=== PATIENT | female | born 1960 | race Caucasian/White ===

== ENCOUNTER → 2017-11-09 08:25 | Outpatient (CLI) | payer BC, SELFPAY ==
--- NOTE | 2017-11-09 08:28 | MM_ITS ---
MM Dig screening mamm BI w/CAD CAD Screening ORDERING PHYSICIAN : Dannie Hernandez MD PATIENT AGE: 57 years GENDER: Female COMPARISON: Previous mammograms: April INDICATION: Routine screening. 57-year-old taking estrogen no new complaints. Noncontributory family history TECHNIQUE: Standard CC and MLO images were obtained. R2 CAD reviewed. FINDINGS: Low-density breast bilaterally with generalized fatty replacement throughout. . CAD computer review highlights no new areas of significant concern. RIGHT BREAST:Minor density laterally on cc view only seems to dissipate dissipates on the MLO view... I favor likely reflects summation shadow with accentuated glandular tissue laterally on cc view. Similar Appearance seen back on 2011 right cc view. Fairly Similar feature on 2013 cc view is well well. . Suggest follow-up right mammogram in 6 months to confirm stability LEFT BREAST:Stable no areas of concern. Follow-up in left mammogram one year recommended. IMPRESSION: ]. 1. RIGHT BREAST: Minimal focal density lateral right breast most likely summation shadow. Similar to the 2011 exam. However since it is slightly more versus the recent 2 years studies I would suggest a 6-8 month follow-up right mammogram confirm stable of this and other area . 2. Left breast unremarkable with follow-up in one year BI-RADS Category: 3 Benign Finding Short Term Follow-up RECOMMENDED FOLLOW-UP: 6M -8 MONTH FOLLOW-UP (A letter has been sent to the patient regarding results of the study.)
== END ==
PROVIDERS: PCP Family Medicine; Visit Provider Nurse Practitioner Obstetrics & Gynecology
DX: Z12.31 Encounter for screening mammogram for malignant neoplasm of breast (principal)
CPT/HCPCS: 77067

== ENCOUNTER → 2017-11-09 10:12 | Outpatient (CLI) | payer BC, SELFPAY ==
[2017-11-09 10:26] LABS: Basophils % 0.4 % (0.1-2.0); Eosinophils # 0.3 K/mm3 (0.0-0.4); Eosinophils % 4.4 % (0.1-12.0); Hematocrit 42.2 % (37.0-47.0); Hemoglobin 13.7 g/dL (12.2-16.2); Lymphocytes # 1.7 K/mm3 (0.7-4.5); Lymphocytes % 22.8 K/mm3 (10-50); Mean Corpuscular HGB Conc 32.5 g/dL (31.8-35.4); Mean Corpuscular Volume 86.1 fl (81-99); Mean Platelet Volume 8.1 fl (7.4-10.4); Monocytes # 0.4 K/mm3 (0.1-1.0); Monocytes % 4.8 % (1.7-9.3); Neutrophils # 5.1 K/mm3 (1.8-7.8); Neutrophils % 67.7 % (37.0-80.0); Platelet Count 304 K/mm3 (142-424); Red Cell Distribution Width 13.5 % (11.5-17.5); White Blood Count 7.6 K/mm3 (4.8-10.8)
[2017-11-09 10:48] LABS: Alanine Aminotransferase 41 U/L (12-78); Albumin Level 3.7 gm/dL (3.4-5.0); Albumin/Globulin Ratio 0.9 (1.1-1.8); Alkaline Phosphatase 89 U/L (46-116); Anion Gap 11.1 mEq/L (5-15); Aspartate Amino Transferase 19 U/L (15-37); Bilirubin,Total 0.5 mg/dL (0.2-1.0); Blood Urea Nitrogen 21 mg/dL (7-18); Calcium 8.9 mg/dL (8.5-10.1); Carbon Dioxide 32 mmol/L (21.0-32.0); Chloride 103 mmol/L (98-107); Chol/HDL Ratio 3.1 (1-3.5); Cholesterol 121 mg/dL (140-200); Creatinine,Serum 0.91 mg/dL (0.55-1.02); Estimated Glomerular Filt Rate 64 ml/min (>60); GFR (African American) 77 ML/MIN (>60); Globulin 4.2 gm/dl (1.3-3.2); Glucose 118 mg/dL (74-106); HDL Cholesterol 39 mg/dL (29-89); LDL Cholesterol 74 mg/dL (0-130); Potassium 4.1 mmoL/L (3.5-5.1); Sodium 142 mmol/L (136-145); T4 (Thyroxine) 8.2 ug/dl (4.7-13.3); Thyroid Stimulating Hormone 1.53 uIU/ml (0.358-3.740); Total Protein,Serum 7.9 gm/dL (6.4-8.2); Triglycerides 39 mg/dL (30-200); Triiodothryronine (T3) Uptake 36 % (31-39); VLDL Cholesterol 8 mg/dL (0-40)
== END ==
PROVIDERS: Visit Provider Nurse Practitioner Obstetrics & Gynecology
DX: Z01.419 Encounter for gynecological examination (general) (routine) without abnormal findings (principal); E03.9 Hypothyroidism, unspecified
CPT/HCPCS: 36415; 80053; 80061; 84436; 84443; 84479; 85025

== ENCOUNTER → 2019-01-08 15:30 | Outpatient (CLI) | payer BC, SELFPAY ==
[2019-01-08 16:09] LABS: Hematocrit 37.9 % (37.0-47.0); Hemoglobin 12.8 g/dL (12.2-16.2)
[2019-01-08 16:53] LABS: Anion Gap 11.9 mEq/L (5-15); Blood Urea Nitrogen 18 mg/dL (7-18); Calcium 9.1 mg/dL (8.5-10.1); Carbon Dioxide 31 mmol/L (21.0-32.0); Chloride 101 mmol/L (98-107); Estimated Glomerular Filt Rate 65 ml/min (>60); GFR (African American) 78 ML/MIN (>60); Glucose 107 mg/dL (74-106); Potassium 3.9 mmoL/L (3.5-5.1); Sodium 140 mmol/L (136-145)
== END ==
PROVIDERS: Visit Provider Otolaryngology
DX: Z01.818 Encounter for other preprocedural examination (principal)
CPT/HCPCS: 36415; 80048; 85014; 85018; 93005

== ENCOUNTER → 2019-03-14 10:53 | Outpatient (CLI) | payer BC, SELFPAY ==
--- NOTE | 2019-03-14 10:55 | MM_ITS ---
MM Dig screening mamm BI w/CAD CAD Screening COMPARISON: Digital mammograms with CAD 11/09/2017 and 01/08/2016 INDICATION: There is no personal or family history of breast cancer. TECHNIQUE: Standard CC and MLO images were obtained. R2 CAD reviewed. FINDINGS: The breasts are composed primarily of fat with very minimal scattered fibroglandular densities in each breast. Again is a small asymmetric glandular density upper outer quadrant right breast which is stable. There is no suspicious lesion and there are no suspicious microcalcifications. IMPRESSION: Fatty type breast parenchyma with no suspicious lesion seen BI-RADS Category: 1 Negative RECOMMENDED FOLLOW-UP: 1YR - 1 YEAR FOLLOW-UP (A letter has been sent to the patient regarding results of the study.)
[2019-03-14 12:14] LABS: Basophils # 0.1 K/mm3 (0-0.2); Basophils % 0.6 % (0.1-2.0); Eosinophils # 0.2 K/mm3 (0.0-0.4); Eosinophils % 2.5 % (0.1-12.0); Hematocrit 41.2 % (37.0-47.0); Lymphocytes # 2.8 K/mm3 (0.7-4.5); Lymphocytes % 31.6 % (10-50); Mean Corpuscular HGB Conc 31.7 g/dL (31.8-35.4); Mean Corpuscular Hemoglobin 26.7 pg (27.0-31.2); Mean Corpuscular Volume 84.4 fl (81-99); Mean Platelet Volume 7.5 fl (7.4-10.4); Monocytes # 0.6 K/mm3 (0.1-1.0); Monocytes % 6.6 % (1.7-9.3); Neutrophils # 5.1 K/mm3 (1.8-7.8); Neutrophils % 58.7 % (37.0-80.0); Platelet Count 404 K/mm3 (142-424); Red Blood Count 4.88 M/mm3 (4.20-5.40); Red Cell Distribution Width 13.9 % (11.5-17.5); White Blood Count 8.7 K/mm3 (4.8-10.8)
[2019-03-14 13:34] LABS: Alanine Aminotransferase 49 U/L (12-78); Albumin Level 3.6 gm/dL (3.4-5.0); Alkaline Phosphatase 89 U/L (46-116); Anion Gap 11.8 mEq/L (5-15); Aspartate Amino Transferase 19 U/L (15-37); Bilirubin,Total 0.9 mg/dL (0.2-1.0); Blood Urea Nitrogen 17 mg/dL (7-18); Calcium 9.2 mg/dL (8.5-10.1); Carbon Dioxide 32 mmol/L (21.0-32.0); Chloride 100 mmol/L (98-107); Cholesterol 177 mg/dL (140-200); Creatinine,Serum 0.95 mg/dL (0.55-1.02); Estimated Glomerular Filt Rate 61 ml/min (>60); GFR (African American) 73 ML/MIN (>60); Globulin 3.7 gm/dl (1.3-3.2); Glucose 103 mg/dL (74-106); HDL Cholesterol 44 mg/dL (29-89); LDL Cholesterol 114 mg/dL (0-130); Potassium 4.8 mmoL/L (3.5-5.1); Sodium 139 mmol/L (136-145); T4 (Thyroxine) 8.3 ug/dl (4.7-13.3); Thyroid Stimulating Hormone 2.08 uIU/ml (0.358-3.740); Total Protein,Serum 7.3 gm/dL (6.4-8.2); Triglycerides 93 mg/dL (30-200); Triiodothryronine (T3) Uptake 36 % (31-39); VLDL Cholesterol 19 mg/dL (0-40)
== END ==
PROVIDERS: PCP Family Medicine; Visit Provider Nurse Practitioner Obstetrics & Gynecology
DX: Z12.31 Encounter for screening mammogram for malignant neoplasm of breast (principal); Z01.419 Encounter for gynecological examination (general) (routine) without abnormal findings; R53.83 Other fatigue
CPT/HCPCS: 36415; 77067; 80053; 80061; 84436; 84443; 84479; 85025

== ENCOUNTER → 2019-03-14 11:31 | Outpatient (CLI) | payer BC, SELFPAY | PROVIDERS: Visit Provider Nurse Practitioner Obstetrics & Gynecology | DX: Z01.419 Encounter for gynecological examination (general) (routine) without abnormal findings (principal) | CPT/HCPCS: 36415; 80053; 80061; 84436; 84443; 84479; 85025 ==

== ENCOUNTER → 2019-09-10 14:23 | Outpatient (CLI) | payer BC, SELFPAY | PROVIDERS: PCP Family Medicine; Visit Provider Urology | DX: R00.2 Palpitations (principal); I34.0 Nonrheumatic mitral (valve) insufficiency; I11.9 Hypertensive heart disease without heart failure; E78.5 Hyperlipidemia, unspecified; R06.83 Snoring; R40.0 Somnolence | CPT/HCPCS: 93270 ==

== ENCOUNTER → 2019-09-13 14:56 | Outpatient (CLI) | payer BC, SELFPAY ==
--- NOTE | 2019-09-13 14:57 | CA_ITS ---
APPROVED REPORT EXAM: Comprehensive 2D, Doppler, and color-flow Echocardiogram Liner Helper: Willow Hidalgo CRT Ht: 5 ft 9 in Wt: 234lbs BSA: 2.21 BP: 156/63 mmHg Indications: Shortness of Breath, Obesity 2D Dimensions LVOT 1.87 cm (M/F) 1.5-2.5 M-Mode Dimensions RVDd 2.72 cm (0.9-2.6) LVDd 5.29 cm (3.5-5.7) LVDs 3.22 cm (3.5-5.7) IVSd 0.72 cm (0.6-1.1) PWd 0.69 cm (0.6-1.1) EF (Teich) 69.10% FS 39.10% EDV (Teich) 134.80 mL ESV (Teich) 41.60 mL LV Diastology E/A Ratio 0.98 Mitral Valve MV A Velocity 96.00 (40-130 cm/s) Left Ventricle Left atrium is normal size, left ventricle is normal size, there is no concentric left ventricular hypertrophy, visually estimated ejection fraction 55% with no regional wall motion abnormality, diastolic parameters are within normal range. Right Ventricle Right atrium and right ventricular normal size and contractility. Aortic Valve Aortic valve is grossly normal, there is no aortic stenosis aortic insufficiency. Mitral Valve Mitral valve is grossly normal, there is mild mitral regurgitation. Tricuspid Valve Tricuspid valve is grossly normal, there is mild tricuspid regurgitation. Tricuspid regurgitation jet velocity is inadequate for calculation of the right ventricular systolic pressure. Pulmonic Valve Pulmonic valve is poorly visualized. Great Vessels Aortic root is normal size. Pericardium No significant pericardial effusion noted. Conclusion 1. Normal left ventricular size, preserved left ventricular systolic function, visually estimated ejection fraction 55% with no regional wall motion abnormality, diastolic parameters are within normal range. 2. Mild mitral and tricuspid regurgitation. 3. No significant pericardial effusion noted. Electronically signed by : Eddie Kovacs, 09/13/2019 19:59:09
== END ==
PROVIDERS: PCP Family Medicine; Visit Provider Urology
DX: R00.2 Palpitations (principal); I11.9 Hypertensive heart disease without heart failure; I34.0 Nonrheumatic mitral (valve) insufficiency; E78.5 Hyperlipidemia, unspecified; R06.83 Snoring; R40.0 Somnolence
CPT/HCPCS: 93306; G0399

== ENCOUNTER → 2020-09-18 10:36 | Outpatient (CLI) | payer BC, SELFPAY ==
--- NOTE | 2020-09-18 10:44 | XR_ITS ---
PROCEDURE: XR HAND LT MIN 3V CLINICAL INDICATION: LT HAND PAIN COMPARISON: No exams were available for comparison FINDINGS: No fracture or dislocation. No lytic or blastic change. There is normal mineralization. There are mild osteoarthritic changes at the 1st metacarpal-carpal junction Other findings:None. IMPRESSION: Mild osteoarthritis 1st metacarpal-carpal junction otherwise negative Dictated by: Braulio Chandler MD 09/18/2020 15:38 Braulio Chandler MD in [place] 09/18/2020 15:38
== END ==
PROVIDERS: PCP Family Medicine; Visit Provider Physician Assistant
DX: M79.642 Pain in left hand (principal)
CPT/HCPCS: 73130

== ENCOUNTER → 2021-02-03 15:46 | Outpatient (CLI) | payer BC, SELFPAY ==
--- NOTE | 2021-02-03 15:51 | XR_ITS ---
PROCEDURE: XR ANKLE WT BEARING LT MIN 3V CLINICAL INDICATION: pain COMPARISON: CR ANKR3 ANKLE-RT-3 VIEWS from 09/01/2016 FINDINGS: Bones: No fracture or dislocation. No lytic or blastic change. There is normal mineralization. Joints: The joint spaces are well-preserved. No significant degenerative/arthritic changes. No erosive changes evident. Other findings:None. IMPRESSION: Negative left ankle Dictated by: Braulio Chandler MD 02/03/2021 17:27 Braulio Chandler MD in [place] 02/03/2021 17:27
--- NOTE | 2021-02-03 15:51 | XR_ITS ---
PROCEDURE: XR FOOT WT BEARING LT 3V CLINICAL INDICATION: pain COMPARISON: No exams were available for comparison FINDINGS: No fracture or dislocation. No lytic or blastic change. There is normal mineralization. The joint spaces are well-preserved. No significant degenerative/arthritic changes. No erosive changes evident. Other findings:Small ununited ossicle is present along the anterior and proximal aspect of the navicular. There is a small calcaneal spur. IMPRESSION: No acute findings. Dictated by: Braulio Chandler MD 02/03/2021 17:26 Braulio Chandler MD in [place] 02/03/2021 17:26
== END ==
PROVIDERS: PCP Family Medicine; Visit Provider Podiatrist
DX: M79.672 Pain in left foot (principal)
CPT/HCPCS: 73610; 73630

== ENCOUNTER → 2021-02-08 09:41 | Outpatient (CLI) | payer BC, SELFPAY ==
--- NOTE | 2021-02-08 09:41 | MM_ITS ---
PROCEDURE: MM DIG SCREENING MAMM BI W/CAD Digital Breast Tomosynthesis Included CLINICAL INDICATION: Routine Screening Mammogram COMPARISON: MG DMSB DIGITAL MAMM-SCREEN BILATERAL from 05/04/2012 MG DMSB DIG MAMM-SCREEN SOB[place] from 05/23/2013 MG DMSB DIG MAMM-SCREEN [place] from 07/29/2014 MG DMSB DIG MAMM-SCREEN [place] from 01/08/2016 MG SCBI MM Dig screening mamm BI w/CAD from 11/09/2017 MG DIG MAMM-SCREEN [place] from 03/14/2019 TECHNIQUE: Standard CC and MLO images and 3D Tomosynthesis was obtained. R2 CAD reviewed. FINDINGS: There are scattered fibroglandular elements which may obscure a lesion on mammography. No new dominant mass or indirect evidence of malignancy. No suspicious type microcalcifications. IMPRESSION: Normal bilateral digital screening mammograms. BI-RAD Category: 1 Negative FOLLOW-UP: 1 YR 1 Year Follow-up (A letter has been sent to the patient regarding results of the study.) Dictated by: Low Torres MD 02/10/2021 07:45 Low Torres MD in [place] 02/10/2021 07:45
[2021-02-08 11:51] LABS: Basophils # 0.1 K/mm3 (0-0.2); Basophils % 0.8 % (0.1-2.0); Eosinophils # 0.3 K/mm3 (0.0-0.4); Eosinophils % 3.2 % (0.1-12.0); Hematocrit 40.3 % (37.0-47.0); Hemoglobin 13.6 g/dL (12.2-16.2); Lymphocytes # 2.2 K/mm3 (0.7-4.5); Lymphocytes % 26.4 % (10-50); Mean Corpuscular HGB Conc 33.6 g/dL (31.8-35.4); Mean Corpuscular Hemoglobin 28.9 pg (27.0-31.2); Mean Corpuscular Volume 85.9 fl (81-99); Mean Platelet Volume 7.8 fl (7.4-10.4); Monocytes # 0.5 K/mm3 (0.1-1.0); Neutrophils # 5.3 K/mm3 (1.8-7.8); Neutrophils % 63.7 % (37.0-80.0); Platelet Count 293 K/mm3 (142-424); Red Cell Distribution Width 13.7 % (11.5-17.5); White Blood Count 8.4 K/mm3 (4.8-10.8)
[2021-02-08 13:10] LABS: Alanine Aminotransferase 28 U/L (12-78); Albumin Level 4.3 g/dl (3.5-5.0); Albumin/Globulin Ratio 1.4 (1.1-1.8); Alkaline Phosphatase 83 U/L (38-126); Anion Gap 9.4 mEq/L (5-15); Aspartate Amino Transferase 32 U/L (14-36); Bilirubin,Total 1.1 mg/dl (0.2-1.3); Blood Urea Nitrogen 18 mg/dl (7-17); Calcium 8.7 mg/dl (8.4-10.2); Carbon Dioxide 31 mmol/L (22.0-30.0); Chloride 103 mmol/L (98-107); Chol/HDL Ratio 3.5 (1-3.5); Cholesterol 156 mg/dl (140-200); Estimated Glomerular Filt Rate 64 ml/min (>60); GFR (African American) 78 ML/MIN (>60); Globulin 3.1 g/dL (1.3-3.2); Glucose 107 mg/dl (74-100); HDL Cholesterol 45 mg/dl (40-60); Potassium 4.4 mmoL/L (3.5-5.1); Sodium 139 mmol/L (136-145); Total Protein,Serum 7.4 g/dl (6.3-8.2); Triglycerides 76 mg/dl (30-150); VLDL Cholesterol 15 mg/dL (0-40)
[2021-02-08 13:22] LABS: Direct LDL Cholesterol 93.11 mg/dL (100-129)
[2021-02-08 13:28] LABS: 25-OH Vitamin D, Total 27.2 ng/mL (30-100); Free Thyroxine Index 2.4 ug/dL (5.93-13.13); Triiodothryronine (T3) Uptake 30 % (23.5-40.5)
[2021-02-08 13:42] LABS: Thyroid Stimulating Hormone 1.46 uIU/mL (0.465-4.68)
== END ==
PROVIDERS: PCP Family Medicine; Visit Provider Nurse Practitioner Obstetrics & Gynecology
DX: Z12.31 Encounter for screening mammogram for malignant neoplasm of breast (principal); Z01.419 Encounter for gynecological examination (general) (routine) without abnormal findings; R53.82 Chronic fatigue, unspecified; R53.83 Other fatigue
CPT/HCPCS: 36415; 77063; 77067; 80053; 80061; 82306; 84436; 84443; 84479; 85025

== ENCOUNTER → 2021-02-08 11:13 | Outpatient (CLI) | payer BC, SELFPAY | PROVIDERS: Visit Provider Nurse Practitioner Obstetrics & Gynecology | DX: Z01.419 Encounter for gynecological examination (general) (routine) without abnormal findings (principal) | CPT/HCPCS: 36415; 80053; 80061; 82306; 84436; 84443; 84479; 85025 ==

== ENCOUNTER → 2021-07-21 16:20 | Outpatient (CLI) | payer BC, SELFPAY ==
[2021-07-21 17:03] LABS: Basophils # 0.1 K/mm3 (0-0.2); Basophils % 0.8 % (0.1-2.0); Eosinophils # 0.3 K/mm3 (0.0-0.4); Eosinophils % 4.7 % (0.1-12.0); Hematocrit 40.8 % (37.0-47.0); Hemoglobin 13.8 g/dL (12.2-16.2); Lymphocytes # 1.5 K/mm3 (0.7-4.5); Lymphocytes % 25.8 % (10-50); Mean Corpuscular HGB Conc 33.7 g/dL (31.8-35.4); Mean Corpuscular Hemoglobin 29.5 pg (27.0-31.2); Mean Corpuscular Volume 87.5 fl (81-99); Mean Platelet Volume 8.6 fl (7.4-10.4); Monocytes # 0.5 K/mm3 (0.1-1.0); Monocytes % 7.8 % (1.7-9.3); Neutrophils # 3.5 K/mm3 (1.8-7.8); Neutrophils % 60.8 % (37.0-80.0); Platelet Count 260 K/mm3 (142-424); Red Blood Count 4.66 M/mm3 (4.20-5.40); Red Cell Distribution Width 14.1 % (11.5-17.5); White Blood Count 5.8 K/mm3 (4.8-10.8)
== END ==
PROVIDERS: PCP Physician Assistant; Visit Provider Physician Assistant
DX: Z20.822 Contact with and (suspected) exposure to COVID-19 (principal)
CPT/HCPCS: 36415; 85025; C9803; U0003; U0005

== ENCOUNTER → 2021-11-16 09:24 | Outpatient (CLI) | payer BC, SELFPAY ==
--- NOTE | 2021-11-16 09:28 | XR_ITS ---
FINAL REPORT TECHNIQUE: Bone densitometry calculations of the lumbar spine and left hip were obtained. CLINICAL HISTORY: . post menopausal FINDINGS: Using L1-4, the bone mineral density of the spine is 1.276 g/cm2, corresponding to T-score of 2.1. Using the left hip, the bone mineral density of the femoral neck is 1.064 g/cm2, corresponding to a T-score of 1.0. Using the right hip, the bone mineral density of the femoral neck is 0.901 g/cm2, corresponding to a T-score of 0.5. NOTE: T-score: Standard deviation compared with peak bone mass of young adult mean. *Following the recommendations of the International Society of Bone densitometry, classification of hip BMD is based on the lower of two T-scores; total hip or femoral neck. IMPRESSION: Normal bone mineral density of the lumbar spine and hips. Reviewed, Interpreted and Dictated by Ace Velásquez MD Transcribed by Belen Dominguez Authenticated by Ace Velásquez MD on 11/16/2021 11:26:37 AM [facility]
== END ==
PROVIDERS: PCP Physician Assistant; Visit Provider Physician Assistant
DX: Z78.0 Asymptomatic menopausal state (principal)
CPT/HCPCS: 77080

== ENCOUNTER → 2022-07-29 15:49 | Outpatient (CLI) | payer BC, SELFPAY ==
--- NOTE | 2022-07-29 15:49 | MM_ITS ---
PROCEDURE INFORMATION: Exam: MG Bilateral Screening 3D Mammography Exam date and time: 07/29/2022 3:57 PM Age: 62 years old Clinical indication: Screening. No family history of breast cancer. TECHNIQUE: Imaging protocol: Bilateral Screening tomosynthesis and 2D mammography including computer-aided detection (CAD) when performed. COMPARISON: 1. MG MM DIG SCREENING MAMM BI W/CAD 02/08/2021 9:57 AM 2. MG DIG MAMM-SCREEN SOBIA 03/14/2019 11:19 AM 3. MG SCBI MM Dig screening mamm BI w/CAD 11/09/2017 8:41 AM 4. MG DMSB DIG MAMM-SCREEN [place] 01/08/2016 4:53 PM FINDINGS: MAMMOGRAPHY: Breast composition: There are scattered areas of fibroglandular density. Mass: None. Architectural distortion: None. Calcifications: No suspicious calcifications. Asymmetric density: None. Skin thickening: None. Axillary adenopathy: None. IMPRESSION: No mammographic evidence of malignancy. Annual screening is recommended unless otherwise clinically indicated. ASSESSMENT: BI-RADS Category 1: Negative
== END ==
PROVIDERS: PCP Physician Assistant; Visit Provider Nurse Practitioner Obstetrics & Gynecology
DX: Z12.31 Encounter for screening mammogram for malignant neoplasm of breast (principal)
CPT/HCPCS: 77063; 77067

== ENCOUNTER → 2022-09-10 10:02 | Outpatient (CLI) | payer BC, SELFPAY ==
[2022-09-10 10:08] LABS: MANUAL DIFFERENTIAL MANUAL DIFFERENTIAL (MANUAL DIFF)
[2022-09-10 10:43] LABS: Basophils # 0.1 K/mm3 (0-0.2); Basophils % 0.9 % (0.1-2.0); Eosinophils # 0.3 K/mm3 (0.0-0.4); Eosinophils % 3.2 % (0.1-12.0); Hematocrit 42.6 % (37.0-47.0); Hemoglobin 13.8 g/dL (12.2-16.2); Lymphocytes # 2.3 K/mm3 (0.7-4.5); Lymphocytes % 27.5 % (10-50); Mean Corpuscular HGB Conc 32.4 g/dL (31.8-35.4); Mean Corpuscular Hemoglobin 28.9 pg (27.0-31.2); Mean Corpuscular Volume 89.2 fl (81-99); Mean Platelet Volume 8.2 fl (7.4-10.4); Monocytes # 0.4 K/mm3 (0.1-1.0); Monocytes % 5.3 % (1.7-9.3); Neutrophils # 5.3 K/mm3 (1.8-7.8); Neutrophils % 63.2 % (37.0-80.0); Platelet Count 382 K/mm3 (142-424); Red Blood Count 4.77 M/mm3 (4.20-5.40); Red Cell Distribution Width 14.1 % (11.5-17.5); White Blood Count 8.4 K/mm3 (4.8-10.8)
[2022-09-10 11:04] LABS: Chloride 103 mmol/L (98-107)
[2022-09-10 11:05] LABS: Potassium 4.3 mmoL/L (3.5-5.1); Sodium 141 mmol/L (136-145)
[2022-09-10 11:07] LABS: Alanine Aminotransferase 26 U/L (12-78); Alkaline Phosphatase 92 U/L (38-126); Anion Gap 11.3 mEq/L (5-15); Aspartate Amino Transferase 29 U/L (14-36); Blood Urea Nitrogen 12 mg/dl (7-17); Carbon Dioxide 31 mmol/L (22.0-30.0); Estimated Glomerular Filt Rate 56 ml/min (>60); GFR (African American) 68 ML/MIN (>60)
[2022-09-10 11:08] LABS: Albumin Level 4.2 g/dl (3.5-5.0); Albumin/Globulin Ratio 1.3 (1.1-1.8); Calcium 8.8 mg/dl (8.4-10.2); Globulin 3.2 g/dL (1.3-3.2); Glucose 112 mg/dl (74-100); Total Protein,Serum 7.4 g/dl (6.3-8.2)
[2022-09-10 11:39] LABS: Thyroid Stimulating Hormone 1.55 uIU/mL (0.465-4.68)
[2022-09-10 12:03] LABS: Eosinophils % 1 % (0-3); Lymphocytes % 29 % (10-50); Monocytes % 2 % (2-9); Neutrophils % 68 % (42-76); Platelet Estimate Normal; RBC Morphology Normal; Total Cells Counted 100
[2022-09-13 14:21] LABS: Chol/HDL Ratio 4.1 (1-3.5); Cholesterol 145 mg/dl (140-200); HDL Cholesterol 35 mg/dl (40-60); Triglycerides 67 mg/dl (30-150); VLDL Cholesterol 13 mg/dL (0-40)
[2022-09-13 14:32] LABS: Direct LDL Cholesterol 81.96 mg/dL (100-129)
== END ==
PROVIDERS: PCP Family Medicine; Visit Provider Nurse Practitioner Obstetrics & Gynecology
DX: R53.83 Other fatigue (principal); E78.2 Mixed hyperlipidemia
CPT/HCPCS: 36415; 80053; 80061; 84443; 85007; 85014; 85018; 85048; 85049

== ENCOUNTER → 2023-03-01 12:27 | Outpatient (CLI) | payer BC, SELFPAY ==
[2023-03-01 13:45] LABS: Hemoglobin A1C 5.8 % (4.0-6.0)
[2023-03-01 14:35] LABS: Vitamin B12 537 pg/mL (239-931)
== END ==
PROVIDERS: PCP Family Medicine; Visit Provider Nurse Practitioner Family
DX: R73.9 Hyperglycemia, unspecified (principal); G47.33 Obstructive sleep apnea (adult) (pediatric)
CPT/HCPCS: 36415; 82607; 83036

== ENCOUNTER 2023-04-11 07:24 | Day surgery (SDC) | payer BC, SELFPAY ==
[2023-04-06 13:51] VITALS: BMI 34.4
[2023-04-11 07:42] VITALS: BP 145/76; PULSE 62; RESP 18; TEMP 36.1; O2SAT 98
--- NOTE | 2023-04-11 07:55 | EXP.ANES.CKL ---
[facility] Disclaimer: The information contained in this section may have been updated after the patient was seen, as this information can be updated by other users. Medical History Hypertension Osteoarthritis Sleep apnea Surgical History History of nasal surgery Family History Other Coronary artery disease Heart attack Social History Smoking Status: Never smoker alcohol intake: current substance use type: denies use current occupational status: employed Travel in the last 8 weeks: Inside the [place] household members: spouse housing: house [facility] Anesthesia Checklist Patient Identification Patient Identification: Verbal (Name & ) Structural Data Admitted From: Home Planned Operative Procedure/s: colonoscopy Consent for Planned Operative Procedure(s) Verified: Yes Airway Assessment Mallampati Score:: Class I C-Spine Mobility Assessed: Yes TMJ Mobility Assessed: Yes Dentition: Good Dentition Neurological Assessment Level of Consciousness: Awake, Alert and Appropriate Anesthesia Plan Anesthesia Risk discussed: Yes Anesthesia Plan: Verified ASA Class: II Anesthesia Type: MAC
[2023-04-11 08:14] VITALS: O2SAT 100
[2023-04-11 08:56] VITALS: BP 88/56; PULSE 62; RESP 14; TEMP 36.1; O2SAT 96
--- NOTE | 2023-04-11 08:56 | HMH.SCOPE ---
Procedure: Date: 04/11/23 Patient Date of :: 1960 Procedure Performed:: Colonoscopy with polypectomy Indications:: Positive Cologuard Performing Provider:: Miguel Angel Dutta MD Referring Provider:: . Sedation:: Monitored anesthesia care Procedure:: After informed consent was obtained the patient was taken to the endoscopy suite. Sedation ensued after the patient was transferred to the left lateral decubitus position. Pulse, blood pressure, and oxygen saturation were monitored throughout the procedure. Digital rectal exam revealed no significant abnormality. The colonoscope was placed in position. The entire colon was evaluated. The colonoscope was carefully removed and the patient was transferred to recovery in stable condition. Please see findings and specimens below for detail. Findings:: Bowel preparation moderate Hemorrhoidal cushions/tags Fairly severe sigmoid tortuosity Moderate spasticity Polyps (see specimens) Specimens:: Sessile cecal polyp (cold snare) Sessile polyp at 45 cm (cold snare) Sessile polyp at 20 cm (cold snare) Recommendations:: Timing of repeat colonoscopy is pending pathology but will likely be around 2 years. Consider barium enema secondary to positive Cologuard and fairly severe sigmoid tortuosity Complications:: No immediate Estimated blood obtained (mL): 1 Colonoscopy Component Colonoscopy Component Was a colonoscopy performed during today's procedure?: Yes Recommended follow up colonoscopy of at least 10 years?: No If no, follow up colonoscopy recommended in ___ years?: 2 Reason for not recommending >/= 10 yr follow-up interval?: Positive Cologuard; moderate prep; severe sigmoid tortuosity
[2023-04-11 09:06] VITALS: BP 93/58; PULSE 63; RESP 16; O2SAT 97
[2023-04-11 09:16] VITALS: BP 100/56; PULSE 53; RESP 16; O2SAT 98
[2023-04-11 09:26] VITALS: BP 122/63; PULSE 53; RESP 17; TEMP 36.6; O2SAT 100
== END 2023-04-11 09:30 | disposition home or self-care (01) ==
PROVIDERS: PCP Physician Assistant; Visit Provider Surgery
PROC: 0DJD8ZZ Inspection of Lower Intestinal Tract, Via Natural or Artificial Opening Endoscopic (ICD-10-PCS; CPT 45385; principal; 2023-04-11 08:30)
DX: R19.5 Other fecal abnormalities (principal); K56.2 Volvulus; D12.0 Benign neoplasm of cecum; D12.5 Benign neoplasm of sigmoid colon
CPT/HCPCS: 45385; J2704

== ENCOUNTER → 2023-07-26 07:46 | Outpatient (CLI) | payer BC, SELFPAY ==
--- NOTE | 2023-07-26 07:46 | FL_ITS ---
FINAL REPORT CLINICAL HISTORY: 3.48 Fluoro time DAP 8481.93 colon spasm FINDINGS: BARIUM ENEMA HISTORY: Incomplete colonoscopy. PROCEDURE: Barium contrast was instilled into the patient's colon via a rectal tube, using gravity drip. Spot and overhead films were performed. A total of 38 images were saved. FINDINGS: [employer] film is unremarkable. Examination is somewhat limited due to high viscosity contrast. This makes the examination insensitive for small mucosal lesions. There is irregularity throughout multiple haustra. This is probably interface between contrast and mucus/retained stool. This appears resolved on the delayed overhead images. There are no constricting or obstructing lesions identified to the level of the cecum. The appendix is well seen. FLUOROSCOPY TIME: 3 minutes 48 seconds Radiation exposure in Total DAP: 8481.93 [id number] IMPRESSION: Somewhat limited examination due to thick contrast and debris in the colon. No large constricting or obstructing lesions of the visualized colon. Reviewed, Interpreted and Dictated by Ace Velásquez MD Transcribed by Gracie Lou PA-C Authenticated and [facility]
== END ==
LOC: RAD 07:46
PROVIDERS: PCP Physician Assistant; Visit Provider Surgery
DX: K59.00 Constipation, unspecified (principal)
CPT/HCPCS: 74270

== ENCOUNTER 2024-03-14 13:31 | Outpatient (CLI) | payer BC, SELFPAY ==
[2024-03-14 14:57] LABS: Basophils # 0.1 K/mm3 (0-0.2); Basophils % 0.6 % (0.1-2.0); Eosinophils # 0.3 K/mm3 (0.0-0.4); Eosinophils % 2.8 % (0.1-12.0); Hematocrit 41.7 % (37.0-47.0); Hemoglobin 13.9 g/dL (12.2-16.2); Lymphocytes # 2.6 K/mm3 (0.7-4.5); Lymphocytes % 26.5 % (10-50); Mean Corpuscular HGB Conc 33.2 g/dL (31.8-35.4); Mean Corpuscular Volume 90.3 fl (81-99); Mean Platelet Volume 8.6 fl (7.4-10.4); Monocytes # 0.6 K/mm3 (0.1-1.0); Monocytes % 5.9 % (1.7-9.3); Neutrophils # 6.3 K/mm3 (1.8-7.8); Neutrophils % 64.3 % (37.0-80.0); Platelet Count 298 K/mm3 (142-424); Red Blood Count 4.62 M/mm3 (4.20-5.40); Red Cell Distribution Width 14.4 % (11.5-17.5); White Blood Count 9.8 K/mm3 (4.8-10.8)
[2024-03-14 15:30] LABS: Free T4 (Free Thyroxine) 0.96 ng/dl (0.78-2.19)
[2024-03-14 19:31] LABS: Chloride 101 mmol/L (98-107)
[2024-03-14 19:32] LABS: Potassium 4.9 mmoL/L (3.5-5.1); Sodium 138 mmol/L (136-145)
[2024-03-14 19:34] LABS: Alanine Aminotransferase 24 U/L (12-78); Alkaline Phosphatase 91 U/L (38-126); Anion Gap 11.9 mEq/L (5-15); Aspartate Amino Transferase 29 U/L (14-36); Blood Urea Nitrogen 16 mg/dl (7-17); Carbon Dioxide 30 mmol/L (22.0-30.0); Cholesterol 167 mg/dl (140-200); Estimated Glomerular Filt Rate 50 ml/min (>60); GFR (African American) 61 ML/MIN (>60); Triglycerides 100 mg/dl (30-150); VLDL Cholesterol 20 mg/dL (0-40)
[2024-03-14 19:35] LABS: Albumin Level 4.3 g/dl (3.5-5.0); Calcium 9.8 mg/dl (8.4-10.2); Chol/HDL Ratio 3.5 (1-3.5); Glucose 106 mg/dl (74-100); HDL Cholesterol 48 mg/dl (40-60); Total Protein,Serum 7.6 g/dl (6.3-8.2)
[2024-03-14 19:47] LABS: Direct LDL Cholesterol 90.77 mg/dL (100-129)
[2024-03-14 20:07] LABS: Thyroid Stimulating Hormone 2.63 uIU/mL (0.465-4.68)
== END 2024-03-14 23:59 | disposition home or self-care (01) ==
LOC: LAB 13:32
PROVIDERS: PCP Family Medicine; Visit Provider Nurse Practitioner
DX: K21.9 Gastro-esophageal reflux disease without esophagitis (principal); I11.9 Hypertensive heart disease without heart failure; E78.2 Mixed hyperlipidemia; R00.2 Palpitations; G47.33 Obstructive sleep apnea (adult) (pediatric); E66.9 Obesity, unspecified; R07.89 Other chest pain; R06.00 Dyspnea, unspecified; Z68.33 Body mass index [BMI] 33.0-33.9, adult
CPT/HCPCS: 36415; 80048; 80061; 80076; 84439; 84443; 85025

== ENCOUNTER 2024-03-22 15:02 | Outpatient (CLI) | payer BC, SELFPAY ==
--- NOTE | 2024-03-22 15:05 | CA_ITS ---
APPROVED REPORT EXAM: Comprehensive 2D, Doppler, and color-flow Echocardiogram People Manager: Akila Dubon, RT(R) Ht: 5 ft 9 in Wt: 226lbs BSA: 2.18 BP: 136/64 mmHg Indications: atypical CP, palpitations, HHD, HTN, hyperlipidemia 2D Dimensions Left Atrium 3.19 cm F: 2.7 - 3.8 LVEF (Rahman's) 47.30 % F: 54 - 74 LVOT 1.95 cm (M/F) 1.5-2.5 LV Volume 91.90 mL F: 46 - 106 LV Volume Index 42.2 mL/m2 F: 29 - 61 LA Volume 21.40 mL LA Volume Index 9.82 mL/m2 (M/F) 16-34 EF AP4 54.10 % EF AP2 38.7 % EF BP 47.3 % GL Strain -15.9 % M-Mode Dimensions RVDd 2.65 cm (0.9-2.6) LVDd 5.59 cm (3.5-5.7) Ao Diam 2.42 cm (2.0-3.7) LVDs 4.30 cm (3.5-5.7) IVSd 0.48 cm (0.6-1.1) PWd 0.60 cm (0.6-1.1) EF (Teich) 45.70% FS 23.10% EDV (Teich) 153.00 mL ESV (Teich) 83.10 mL LV Diastology E Decel Time 208 (160-240 msec) E/A Ratio 1.5 MED E' 7.0 (>= 7 cm/sec) E'/MED E' Ratio 17.14 (<= 14) LAT E' 8.6 (>= 10 cm/sec) E/LAT E' Ratio 13.95 (<= 14) Mitral Valve MV E Max Lázaro. 120.0 (40-130 cm/s) MV A Velocity 82.0 (40-130 cm/s) E/A Ratio 1.47 MV Decel. Time 208 (160-240 ms) Tricuspid Valve TR P. Velocity 277.00 cm/s RAP Estimate 10.00 mmHg RVSP 40.80 mmHg Left Ventricle The left ventricle is normal size. The left ventricular systolic function is normal. The left ventricular ejection fraction is within the normal range. There is increased LV wall thickness. The left ventricular diastolic function is normal. LVEF is 60%. Right Ventricle The right ventricle is mildly dilated. The right ventricular systolic function is normal. Atria The left atrium size is normal. The right atrium size is normal. There is no Doppler evidence of interatrial shunt. Aortic Valve The aortic valve is mildly thickened. There is no aortic valvular stenosis. No aortic regurgitation is present. Mitral Valve The mitral valve is normal in structure. No evidence of mitral valve stenosis. Trace mitral regurgitation. Tricuspid Valve The tricuspid valve leaflets are thin and pliable. Trace tricuspid regurgitation. There is insufficient TR jet to estimate RVSP. Pulmonic Valve The pulmonary valve is normal in structure. Trace pulmonic regurgitation. Great Vessels The aortic root is normal in size. The ascending aorta is not well-visualized. IVC is normal in size and collapses >50% with inspiration. Pericardium There is no pericardial effusion. There is a possible liver echodensity measuring 5.8 cm x 5.0 cm in close proximity to the right atrial free wall. However, adequate evaluation is difficult in the setting of technically difficult study. Other Information Study Quality: Technically Difficult Conclusion Technically difficult study due to poor acoustic windows. Normal biventricular systolic function. No significant valvular stenosis or regurgitation. Possible liver echodensity measuring 5.8 cm x 5.0 cm in close proximity to the right atrial free wall. However, adequate evaluation is difficult in the setting of technically difficult study. Further evaluation with RUQ ultrasound and/or CT abdomen is recommended. Electronically signed by : Yana Weber MD 03/25/2024 00:10:51
== END 2024-03-22 23:59 | disposition home or self-care (01) ==
LOC: RT 15:05
PROVIDERS: PCP Physician Assistant; Visit Provider Nurse Practitioner
DX: R07.89 Other chest pain (principal); R00.2 Palpitations; I11.9 Hypertensive heart disease without heart failure; E78.2 Mixed hyperlipidemia
CPT/HCPCS: 93306

== ENCOUNTER 2024-04-12 07:48 | Outpatient (CLI) | payer BC, SELFPAY ==
--- NOTE | 2024-04-12 07:48 | CT_ITS ---
FINAL REPORT TECHNIQUE: Axial CT images of the abdomen were obtained with IV contrast only. Coronal and sagittal reformatted images were also obtained. This study was performed with techniques to keep radiation doses as low as reasonably achievable (ALARA). Individualized dose reduction techniques using automated exposure control or adjustment of mA and/or kV according to the patient's size were employed. CLINICAL HISTORY: liver mass COMPARISON: None FINDINGS: There is a 4 mm nodule in the lateral aspect of the left lower lobe, likely benign, however if clinically indicated a follow-up CT could be performed. The liver has an unremarkable appearance, without evidence of mass. The gallbladder appears normal without evidence of gallstones. There is no evidence of biliary ductal dilatation. The pancreas appears normal. The spleen size is within normal limits. There is no evidence of renal mass or hydronephrosis. There is no evidence of adenopathy. No abnormal fluid collection is seen. No localized inflammatory processes identified. The appendix is normal in appearance. A small umbilical hernia is present containing fat. IMPRESSION: No evidence of hepatic mass or other abnormality is seen. 4 mm nodule in the lateral aspect of the left lower lobe, likely benign. However if clinically indicated a follow-up CT could be performed in 12 months for further evaluation. Reviewed, Interpreted and Dictated by Camilo Hernandez III, MD Transcribed by Kusum Hansen Authenticated and . [facility]
[2024-04-12] MEDS: IOPAMIDOL-370 (76%);100ML BOTTLE 75 ML IV (08:21)
[2024-04-12] MEDS: SODIUM CHLORIDE 0.9% 10ML SYR (RAD ONLY) 10 ML IV (08:21)
== END 2024-04-12 23:59 | disposition home or self-care (01) ==
LOC: RAD 07:48
PROVIDERS: PCP Physician Assistant; Visit Provider Nurse Practitioner
DX: R16.0 Hepatomegaly, not elsewhere classified (principal)
CPT/HCPCS: 74160; Q9967

== ENCOUNTER 2024-05-08 14:47 | Emergency (ER) | payer OTHER, SELFPAY ==
[2024-05-08 14:59] VITALS: BP 148/78; PULSE 66; RESP 20; TEMP 36.9; O2SAT 99; BMI 33.6
--- NOTE | 2024-05-08 14:59 | XR_ITS ---
FINAL REPORT CLINICAL HISTORY: pain COMPARISON: None FINDINGS: AP and lateral views of the lumbar spine were obtained. There is no prior exam for comparison. There is no acute fracture or malalignment. Vertebral body height is preserved. Mild and moderate degenerative changes present with osteophytes. Disc space narrowing is present at the L5-S1 level. No acute paraspinal abnormality. IMPRESSION: Mild and moderate degenerative change as described. Reviewed, Interpreted and Dictated by Camilo Hernandez III, MD Transcribed by Kusum Hansen Authenticated and [facility]
--- NOTE | 2024-05-08 14:59 | ED_ITS ---
Discharge Plan Disposition Patient Disposition: Home, Self-Care Condition: Good Prescriptions Prescriptions: New cyclobenzaprine 10 mg Tablet 10 mg PO BID PRN (Reason: Muscle Spasm) Qty: 20 0RF methylprednisolone 4 mg Tablets,Dose Pack 4 mg PO DIRECTED 6 Days Qty: 21 0RF Rx Instructions: Take 1 pack as directed for 6 days No Action atorvastatin 10 mg tablet 10 mg PO DAILY Patient Comments: TAKE 1 TABLET BY MOUTH DAILY FOR CHOLESTEROL lisinopril-hydrochlorothiazide 20-12.5 mg tablet 12.5 tab PO DAILY Patient Comments: TAKE 2 TABLETS BY MOUTH DAILY FOR BLOOD PRESSURE amlodipine 5 mg tablet 5 mg PO DAILY Patient Comments: TAKE 1 TABLET BY MOUTH ONCE DAILY FOR BLOOD PRESSURE bisoprolol fumarate 5 mg tablet 5 mg PO DAILY Patient Comments: TAKE 1 TABLET BY MOUTH DAILY FOR BLOOD PRESSURE meloxicam 7.5 mg tablet 7.5 mg PO DAILY Patient Comments: TAKE 1 TABLET BY MOUTH DAILY estradiol 1 mg tablet 1 mg PO DAILY Patient Comments: TAKE 1 TABLET BY MOUTH EVERY DAY montelukast 10 mg tablet 10 mg PO DAILY Patient Comments: TAKE 1 TABLET BY MOUTH DAILY fluticasone propionate 50 mcg/actuation spray,suspension 50 mcg INTRANASAL DAILY Patient Comments: SHAKE LIQUID AND USE 1 SPRAY IN EACH NOSTRIL DAILY Referrals Follow up/Referrals: Pedro Valles MD [Primary Care Provider] - See instructions Activity Restrictions/Add. Instructions Additional Instructions/Restrictions: Go home and rest. It would be best if you rested tomorrow too. No heavy lifting and No twisting for the next few days. Take the oral medications as directed. The muscle relaxer (cyclobenzaprine--Flexeril) will make you drowsy, so don't drive or operate heavy machinery after taking it. Don't start the oral steroids (medrol dose pack) until tomorrow, since you had the shots in here today. Follow up with your regular doctor. GO TO THE ER FOR ANY WORSENING SYMPTOMS OR CONCERN, ESPECIALLY BOWEL OR BLADDER ISSUES, SADDLE AREA NUMBNESS, FEVER, ETC Clinical Impressions Clinical Impression: Low back strain Stand Alone Forms Stand Alone Forms: Work/School Release Instructions Patient Instructions: Low Back Pain, DI for Low Back Pain, Ketorolac Injection, Dexamethasone Injection Print Language Print Language: Tajik Discharge ED Provider: Low Robin [facility] General Stated complaint: WC 05/06/24, lower back inj. Time Seen by Provider: 05/08/24 14:59 Related Data Home Medications ?Medication ?Instructions ?Recorded ?Confirmed amlodipine 5 mg tablet 5 mg PO DAILY 05/08/24 05/08/24 atorvastatin 10 mg tablet 10 mg PO DAILY 05/08/24 05/08/24 bisoprolol fumarate 5 mg tablet 5 mg PO DAILY 05/08/24 05/08/24 estradiol 1 mg tablet 1 mg PO DAILY 05/08/24 05/08/24 fluticasone propionate 50 50 mcg intranasal DAILY 05/08/24 05/08/24 mcg/actuation nasal spray,suspension lisinopril 20 12.5 tab PO DAILY 05/08/24 05/08/24 mg-hydrochlorothiazide 12.5 mg tablet meloxicam 7.5 mg tablet 7.5 mg PO DAILY 05/08/24 05/08/24 montelukast 10 mg tablet 10 mg PO DAILY 05/08/24 05/08/24 Previous Rx's ?Medication ?Instructions ?Recorded cyclobenzaprine 10 mg tablet 10 mg PO BID PRN Muscle Spasm #20 05/08/24 tabs methylprednisolone 4 mg tablets in 4 mg PO DIRECTED 6 days #21 tabs 05/08/24 a dose pack Allergies Allergy/AdvReac Type Severity Reaction Status Date / Time sulfamethoxazole Allergy Unknown Verified 04/30/24 15:09 [From BACTRIM] trimethoprim [From BACTRIM] Allergy Unknown I-HIVES Verified 04/30/24 15:09 amlodipine [From Norvasc] Allergy Verified 04/30/24 15:09 [facility] Disclaimer: The information contained in this section may have been updated after the patient was seen, as this information can be updated by other users. Medical History Sleep apnea Hypertension Osteoarthritis Surgical History History of colonoscopy History of nasal surgery Family History Other Coronary artery disease Heart attack Social History Smoking Status: Never smoker alcohol intake: current alcohol intake frequency: holidays/special occasions only substance use type: denies use current occupational status: employed Travel in the last 8 weeks: Inside the [place] household members: spouse housing: house ROS Obtained: Yes All systems reviewed & no additional complaints except as do cumented Constitutional Constitutional: Denies chills and Denies fever(s) Eyes Eyes: Denies eye discharge ENT Ears, Nose, Mouth, and Throat: Denies dizziness, Denies otalgia and Denies sore throat Cardiovascular Cardiovascular: Denies chest pain Respiratory Respiratory: Denies shortness of breath, Denies chest congestion, Denies cough, Denies stridor and Denies wheezing Gastrointestinal Gastrointestingal: Denies nausea or vomiting Musculoskeletal Musculoskeletal: Reports system reviewed and no additional complaints, except as documented and Denies arthralgias Integumentary/Breasts Skin/Breast: Denies rash Neurologic Neurologic: Denies dizziness and Denies paresthesias Allergic/Immunologic Allergic/Immunologic: Denies wheezing Physical Exam General General appearance: alert and in no apparent distress Head Head exam: atraumatic, normocephalic and normal inspection Eye Eye exam: Present normal appearance, PERRL and EOMI ENT ENT exam: Present normal exam, normal oropharynx, mucous membranes moist, TM's normal bilaterally and normal external ear exam Neck Neck exam: Present normal inspection, full ROM and trachea midline; Absent meningismus or lymphadenopathy Chest Chest inspection: Present normal inspection and symmetric chest wall rise; Absent tenderness Respiratory Respiratory exam: Present normal lung sounds bilaterally; Absent respiratory distress Cardiovascular Cardiovascular exam: Present regular rate and normal rhythm; Absent JVD Abdominal Exam Abdominal exam: Present soft and normal bowel sounds; Absent distention, tenderness or guarding Extremities Exam Extremities exam: Present normal inspection, full ROM and normal capillary refill; Absent calf tenderness Back Exam Back exam: Present normal inspection; Absent tenderness Neurological Exam Neurological exam: Present alert and oriented X3 Psychiatric Psychiatric exam: Present normal affect and normal mood Skin Skin exam: Present warm, dry, intact and normal color Lymphatic Lymphatic Findings: no adenopathy Medical Decision Making Medical Records Medical records reviewed: No I reviewed the patient's medical records. John Inquiry Pt receiving controlled substance: No
[2024-05-08] MEDS: DEXAMETHASONE 4MG/ML 1ML VIAL 8 MG IM (15:48)
[2024-05-08] MEDS: KETOROLAC 60MG/2ML VIAL 30 MG IM (15:50)
[2024-05-08 16:06] VITALS: BP 148/78; PULSE 66; RESP 20; TEMP 36.9
== END 2024-05-08 16:07 | disposition home or self-care (01) ==
PROVIDERS: Emergency Provider Nurse Practitioner Family; PCP Family Medicine
DX: S39.012A Strain of muscle, fascia and tendon of lower back, initial encounter (principal); X50.0XXA Overexertion from strenuous movement or load, initial encounter
CPT/HCPCS: 72100; 96372; 99204; 99212; G0463; J1100; J1885

== ENCOUNTER 2024-11-14 12:05 | Outpatient (CLI) | payer BC, SELFPAY ==
--- NOTE | 2024-11-14 | CA_ITS ---
APPROVED REPORT Exam: Exercise Treadmill Technologist: Leena Reese Ht: 5 ft 9 in Wt: 236 lbs BSA: 2.22 m2 HR: 56 bpm BP: 165/80 mmHg Medical History Medical History: HTN Medications: Atorvastatin, Esradiol, Lisinopril HCTZ, Medroxyprogesterone, Meloxicam, Montelukast Allergies: Sulfamethoxazole, Trimethoprim, Amlodipine Cardiac Risk Factors: HTN, FHX of CAD Stress Test Details Test: Exercise stress testing was performed using a Wayne protocol. HR Resting HR: 56 bpm Max Heart Rate (APMHR): 157 bpm Target HR (85% APMHR): 133 bpm Recovery HR: 75 bpm BP Resting BP: 165.0/80.0 mmHg Max BP: 205.0/85.0 mmHg Recovery BP: 153.0/90.0 mmHg ECG Clinical Highest Stage Achieved: Stage 3: 3.4 mph at 14% grade. Stress ECG Conclusion Pt injected @ 6:44 Pt had no symptoms Electronically signed by : Yana Weber MD 11/17/2024 21:25:03
--- NOTE | 2024-11-14 12:05 | NM_ITS ---
APPROVED REPORT Exam: Nuclear Stress Test Indication: Palpitations, Faigue, HTN, High cholesterol, Family history Patient Location: Outpatient Stress Tech: Leena Reese SC Tech:Aidee PennJUDY RT(R)(N) Ht: 5 ft 9 in Wt: 228 lbs Bra Size: 40C HR: 54 bpm BP: 152/79 mmHg BSA: 2.18 m2 TID: 1.19 BMI: 33.6 History: Palpitations, Faigue, HTN, High cholesterol, Family history Procedure: Patient exercised on Wayne protocol 7:48 minutes and sec, resting heart rate 54 bpm, resting blood pressure 152/79 mmHg, with exercise maximum heart rate achived was 141 bpm which is 89 % of the maximum predicted heart rate and blood pressure was 195/90 mmHg. Test was stopped due to SOB. Patient denied any complaint of chest pain. Patient has Average exercise capacity, achieved 10.1 METs of workload on treadmill, the blood pressure response to exercise was Normal. Cardiac Stress and Resting SPECT Images: Cardiac Stress and Resting SPECT images were obtained using technetium 99m Myoview 30.2 mCi stress and 10.45 mCi at rest. Resting and stress imaging in supine and prone positions demonstrate no evidence of fixed or reversible perfusion defects. Gated imaging demonstrates normal global and regional LV systolic function. LVEF is calculated at 65%. Conclusion: No evidence of fixed or reversible perfusion defects. Gated imaging demonstrates normal global and regional LV systolic function. LVEF is calculated at 65%. Electronically signed by : Yana Weber MD 11/17/2024 21:15:59
[2024-11-14] MEDS: SODIUM CHLORIDE 0.9% 10ML SYR (RAD ONLY) 10 ML IV ×2 (14:45)
[2024-11-14] MEDS: ISOTOPE MYOVIEW (PER STUDY) 1 DOSE IV (14:45)
[2024-11-14 17:28] LABS: Basophils % 0.3 % (0.1-2.0); Eosinophils # 0.2 K/mm3 (0.0-0.4); Eosinophils % 1.7 % (0.1-12.0); Hematocrit 39.3 % (37.0-47.0); Lymphocytes # 2.3 K/mm3 (0.7-4.5); Lymphocytes % 23.6 % (10-50); Mean Corpuscular HGB Conc 33.1 g/dL (31.8-35.4); Mean Corpuscular Hemoglobin 28.8 pg (27.0-31.2); Mean Corpuscular Volume 86.9 fl (81-99); Mean Platelet Volume 11.1 fl (7.4-10.4); Monocytes # 0.6 K/mm3 (0.1-1.0); Monocytes % 6.5 % (1.7-9.3); Neutrophils # 6.5 K/mm3 (1.8-7.8); Neutrophils % 67.6 % (37.0-80.0); Platelet Count 281 K/mm3 (142-424); Red Blood Count 4.52 M/mm3 (4.20-5.40); Red Cell Distribution Width 12.8 % (11.5-17.5); White Blood Count 9.7 K/mm3 (4.8-10.8)
[2024-11-14 18:35] LABS: Alanine Aminotransferase 29 U/L (12-78); Albumin Level 4.7 g/dl (3.5-5.0); Alkaline Phosphatase 73 U/L (38-126); Anion Gap 11.8 mEq/L (5-15); Aspartate Amino Transferase 34 U/L (14-36); Bilirubin,Direct 0.4 mg/dl (0.0-0.4); Bilirubin,Indirect 0.8 mg/dL (0.0-0.9); Bilirubin,Total 1.2 mg/dl (0.2-1.3); Bilirubin,Unconjugated 0.9 mg/dL (0.0-1.1); Blood Urea Nitrogen 22 mg/dl (7-17); Calcium 9.4 mg/dl (8.4-10.2); Carbon Dioxide 29 mmol/L (22.0-30.0); Chloride 100 mmol/L (98-107); Chol/HDL Ratio 3.2 (1-3.5); Cholesterol 139 mg/dl (140-200); Estimated Glomerular Filt Rate 63 ml/min (>60); GFR (African American) 77 ML/MIN (>60); Glucose 83 mg/dl (74-100); HDL Cholesterol 43 mg/dl (40-60); Magnesium 2.1 mg/dl (1.6-2.3); Potassium 4.8 mmoL/L (3.5-5.1); Sodium 136 mmol/L (136-145); Total Protein,Serum 7.5 g/dl (6.3-8.2); Triglycerides 73 mg/dl (30-150); VLDL Cholesterol 15 mg/dL (0-40)
[2024-11-14 18:46] LABS: Direct LDL Cholesterol 71.77 mg/dL (100-129)
[2024-11-14 18:52] LABS: Free T4 (Free Thyroxine) 1.01 ng/dl (0.78-2.19)
[2024-11-14 19:06] LABS: Thyroid Stimulating Hormone 1.57 uIU/mL (0.465-4.68)
== END 2024-11-14 23:59 | disposition home or self-care (01) ==
PROVIDERS: PCP Family Medicine; Visit Provider Internal Medicine
DX: R07.89 Other chest pain (principal); I11.9 Hypertensive heart disease without heart failure; R60.9 Edema, unspecified; E78.2 Mixed hyperlipidemia; R73.9 Hyperglycemia, unspecified
CPT/HCPCS: 36415; 78452; 80048; 80061; 80076; 83735; 84439; 84443; 85025; 93017; 93018; A9502

== ENCOUNTER 2024-12-02 11:26 | Outpatient (CLI) | payer BC, SELFPAY ==
--- NOTE | 2024-12-02 11:41 | XR_ITS ---
FINAL REPORT TECHNIQUE: Chest PA & Lateral CLINICAL HISTORY: PNEUMONIA productive cough x 10 days recent flu COMPARISON: None FINDINGS: 2 views of the chest were performed. The heart size is normal. The mediastinum is within normal limits. There is no acute cardiopulmonary process. There are no pleural effusions. There is no pneumothorax. The bony thorax appears intact. IMPRESSION: No acute cardiopulmonary process. Reviewed, Interpreted and Dictated by Ace Velásquez MD Transcribed by Kusum Hansen Authenticated and [facility]
[2024-12-02 11:50] LABS: Basophils % 0.3 % (0.1-2.0); Eosinophils # 0.2 K/mm3 (0.0-0.4); Hematocrit 42.6 % (37.0-47.0); Hemoglobin 14.3 g/dL (12.2-16.2); Lymphocytes # 1.9 K/mm3 (0.7-4.5); Lymphocytes % 12.9 % (10-50); Mean Corpuscular HGB Conc 33.6 g/dL (31.8-35.4); Mean Corpuscular Hemoglobin 28.7 pg (27.0-31.2); Mean Corpuscular Volume 85.4 fl (81-99); Mean Platelet Volume 9.7 fl (7.4-10.4); Monocytes # 1.2 K/mm3 (0.1-1.0); Monocytes % 8.6 % (1.7-9.3); Neutrophils # 11.1 K/mm3 (1.8-7.8); Neutrophils % 76.6 % (37.0-80.0); Platelet Count 423 K/mm3 (142-424); Red Blood Count 4.99 M/mm3 (4.20-5.40); Red Cell Distribution Width 12.6 % (11.5-17.5); White Blood Count 14.4 K/mm3 (4.8-10.8)
--- OUTSIDE RECORDS SUMMARY | 2024-12-05 20:23 | XMS_ITS ---
Author Organization Unknown Medications Medication Instructions Effective Dates (start - stop) Status estradiol 1 MG Oral Tablet :00:00.000+00 :00 - Completed estradiol 1 MG Oral Tablet :00:00.000+00 :00 - Completed estradiol 1 MG Oral Tablet :00:00.000+00 :00 - Completed atorvastatin 10 MG Oral Tablet 2 [id number]:00:00.000+00 :00 - Completed estradiol 1 MG Oral Tablet :00:00.000+00 :00 - Completed fluticasone propionate 0.05 MG/ACTUAT Metered Dose Nasal [place] [id number]:00:00 .000+00 :00 - Completed atorvastatin 10 MG Oral Tablet [id number]:00:00.000+00 :00 - Completed estradiol 1 MG Oral Tablet :00:00.000+00 :00 - Completed [id number] 200 ACTUAT albuter ol 0.09 MG/ACTUAT Metered Dose Inhaler [id number]:00:00.000 +00 :00 - Completed estradiol 1 MG Oral Tablet :00:00.000+00 :00 - Completed estradiol 1 MG Oral Tablet :00:00.000+00 :00 - Completed estradiol 1 MG Oral Tablet :00:00.000+00 :00 - Completed estradiol 1 MG Oral Tablet :00:00.000+00 :00 - Completed meloxicam 7.5 MG Oral Tablet 10-27-26:00:00.000+00 :00 - Completed montelukast 10 MG Oral Tablet 18-02-24:00:00.000+00 :00 - Completed atorvastatin 10 MG Oral Tablet 2 [id number]:00:00.000+00 :00 - Completed fluticasone propionate 0.05 MG/ACTUAT Metered Dose Nasal [place] [id number]:00:00 .000+00 :00 - Completed montelukast 10 MG Oral Tablet 20 18-11-27:00:00.000+00 :00 - Completed fluticasone propionate 0.05 MG/ACTUAT Metered Dose Nasal [place] [id number]:00:00 .000+00 :00 - Completed atorvastatin 10 MG Oral Tablet 2 [id number]:00:00.000+00 :00 - Completed [id number] 200 ACTUAT albuter ol 0.09 MG/ACTUAT Metered Dose Inhaler [id number]:00:00.000 +00 :00 - Completed montelukast 10 MG Oral Tablet 19-05-09:00:00.000+00 :00 - Completed fluticasone propionate 0.05 MG/ACTUAT Metered Dose Nasal [place] [id number]:00:00 .000+00 :00 - Completed medroxyprogesterone acetate 2.5 MG Oral Tablet [id number]:00:00.000+00 :00 - Completed meloxicam 7.5 MG Oral Tablet 10-09-04:00:00.000+00 :00 - Completed fluticasone propionate 0.05 MG/ACTUAT Metered Dose Nasal [place] 8033-00-99H26:00:00 .000+00 :00 - Completed montelukast 10 MG Oral Tablet 20 18-08-12:00:00.000+00 :00 - Completed meloxicam 7.5 MG Oral Tablet 10-30-24:00:00.000+00 :00 - Completed fluticasone propionate 0.05 MG/ACTUAT Metered Dose Nasal [place] [id number]:00:00 .000+00 :00 - Completed [id number] 200 ACTUAT albuter ol 0.09 MG/ACTUAT Metered Dose Inhaler [id number]:00:00.000 +00 :00 - Completed amlodipine 5 MG Oral Tablet 2022:00:00.000+00 :00 - Completed fluticasone propionate 0.05 MG/ACTUAT Metered Dose Nasal [place] [id number]:00:00 .000+00 :00 - Completed meloxicam 7.5 MG Oral Tablet 10-06-07:00:00.000+00 :00 - Completed medroxyprogesterone acetate 2.5 MG Oral Tablet [id number]:00:00.000+00 :00 - Completed medroxyprogesterone acetate 2.5 MG Oral Tablet [id number]:00:00.000+00 :00 - Completed fluticasone propionate 0.05 MG/ACTUAT Metered Dose Nasal [place] [id number]:00:00 .000+00 :00 - Completed {21 (methylprednisolone 4 MG Oral Tablet) } Pack [id number]:00:00.000+00 :00 - Completed amlodipine 5 MG Oral Tablet 2021:00:00.000+00 :00 - Completed amoxicillin 500 MG Oral Capsule [id number]:00:00.000+00 :00 - Completed amlodipine 5 MG Oral Tablet 2021:00:00.000+00 :00 - Completed bisoprolol fumarate 5 MG Oral Tablet [id number]:00:00.000+00 :00 - Completed bisoprolol fumarate 5 MG Oral Tablet [id number]:00:00.000+00 :00 - Completed {6 (azithromycin 250 MG Oral Tablet) } Pack [id number]:00:00.000+00 :00 - Completed bisoprolol fumarate 5 MG Oral Tablet [id number]:00:00.000+00 :00 - Completed amlodipine 5 MG Oral Tablet 2022:00:00.000+00 :00 - Completed amlodipine 5 MG Oral Tablet 2021:00:00.000+00 :00 - Completed bisoprolol fumarate 5 MG Oral Tablet [id number]:00:00.000+00 :00 - Completed hydrochlorothiazide 12.5 MG / lisinopril 20 MG Oral Tablet [id number]:00:00.000+0 0 :00 - Completed hydrochlorothiazide 12.5 MG / lisinopril 20 MG Oral Tablet [id number]:00:00.000+0 0 :00 - Completed hydrochlorothiazide 12.5 MG / lisinopril 20 MG Oral Tablet [id number]:00:00.000+0 0 :00 - Completed hydrochlorothiazide 12.5 MG / lisinopril 20 MG Oral Tablet [id number]:00:00.000+0 0 :00 - Completed Patient Care team information Name Category Status Period Participants - - Proposed period not known -
== END 2024-12-02 23:59 | disposition home or self-care (01) ==
LOC: RAD 11:27
PROVIDERS: PCP Family Medicine; Visit Provider Nurse Practitioner Family
DX: J18.9 Pneumonia, unspecified organism (principal)
CPT/HCPCS: 36415; 71046; 85025

== ENCOUNTER 2024-12-16 15:27 | Outpatient (CLI) | payer BC, SELFPAY ==
[2024-12-16 16:01] LABS: Basophils % 0.4 % (0.1-2.0); Eosinophils # 0.3 Kmm3 (0.0-0.4); Eosinophils % 2.4 % (0.1-12.0); Hematocrit 35.4 % (37.0-47.0); Hemoglobin 11.6 g/dL (12.2-16.2); Lymphocytes # 2.3 K/mm3 (0.7-4.5); Lymphocytes % 21.9 % (10-50); Mean Corpuscular HGB Conc 32.8 g/dL (31.8-35.4); Mean Corpuscular Hemoglobin 28.4 pg (27.0-31.2); Mean Corpuscular Volume 86.8 fl (81-99); Mean Platelet Volume 10.7 fl (7.4-10.4); Monocytes # 0.9 K/mm3 (0.1-1.0); Monocytes % 8.4 % (1.7-9.3); Neutrophils % 66.5 % (37.0-80.0); Nucleated Red Blood Cells # 0 10^3/uL; Nucleated Red Blood Cells % 0 %; Platelet Count 332 K/mm3 (142-424); Red Blood Count 4.08 M/mm3 (4.20-5.40); Red Cell Distribution Width 12.9 % (11.5-17.5); Red Cell Distribution Width-SD 40.4 fL; White Blood Count 10.6 K/mm3 (4.8-10.8)
[2024-12-16 16:31] LABS: Chloride 100 mmol/L (98-107); Sodium 135 mmol/L (136-145)
[2024-12-16 16:34] LABS: Blood Urea Nitrogen 23 mg/dl (7-17); Carbon Dioxide 28 mmol/L (22.0-30.0); Estimated Glomerular Filt Rate 38 ml/min (>60)
[2024-12-16 16:35] LABS: Calcium 9.9 mg/dl (8.4-10.2); GFR (African American) 46 ML/MIN (>60); Glucose 100 mg/dl (74-100)
== END 2024-12-16 23:59 | disposition home or self-care (01) ==
LOC: LAB 15:28
PROVIDERS: PCP Family Medicine; Visit Provider Internal Medicine
DX: I11.9 Hypertensive heart disease without heart failure (principal); E78.2 Mixed hyperlipidemia
CPT/HCPCS: 36415; 80048; 85025

== ENCOUNTER 2024-12-18 15:52 | Outpatient (CLI) | payer BC, SELFPAY ==
[2024-12-18 16:32] LABS: Chloride 102 mmol/L (98-107); Sodium 136 mmol/L (136-145)
[2024-12-18 16:33] LABS: Potassium 4.9 mmoL/L (3.5-5.1)
[2024-12-18 16:35] LABS: Blood Urea Nitrogen 27 mg/dl (7-17); Estimated Glomerular Filt Rate 35 ml/min (>60); GFR (African American) 42 ML/MIN (>60)
[2024-12-18 16:36] LABS: Anion Gap 9.9 mEq/L (5-15); Calcium 8.9 mg/dl (8.4-10.2); Carbon Dioxide 29 mmol/L (22.0-30.0); Glucose 101 mg/dl (74-100)
== END 2024-12-18 23:59 | disposition home or self-care (01) ==
LOC: LAB 15:53
PROVIDERS: PCP Family Medicine; Visit Provider Internal Medicine
DX: R53.83 Other fatigue (principal); E78.5 Hyperlipidemia, unspecified; I11.9 Hypertensive heart disease without heart failure
CPT/HCPCS: 36415; 80048

== ENCOUNTER 2025-01-07 15:31 | Outpatient (CLI) | payer BC, SELFPAY ==
[2025-01-07 17:04] LABS: Chloride 103 mmol/L (98-107); Potassium 4.4 mmoL/L (3.5-5.1); Sodium 138 mmol/L (136-145)
[2025-01-07 17:07] LABS: Anion Gap 8.4 mEq/L (5-15); Blood Urea Nitrogen 15 mg/dl (7-17); Carbon Dioxide 31 mmol/L (22.0-30.0); Estimated Glomerular Filt Rate 50 ml/min (>60); GFR (African American) 61 ML/MIN (>60)
[2025-01-07 17:08] LABS: Calcium 8.8 mg/dl (8.4-10.2); Glucose 100 mg/dl (74-100)
== END 2025-01-07 23:59 | disposition home or self-care (01) ==
LOC: LAB 15:31
PROVIDERS: PCP Family Medicine; Visit Provider Physician Assistant
DX: R42 Dizziness and giddiness (principal); R60.9 Edema, unspecified
CPT/HCPCS: 36415; 80048

== ENCOUNTER 2025-03-17 16:18 | Outpatient (CLI) | payer BC, SELFPAY ==
--- OUTSIDE RECORDS SUMMARY | 2024-12-02 06:45 | XMS_ITS ---
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 Name Role Phone Viji Vallesian Primary Care Provider BolanosAngelita hanksSherry Unavailable [phone] Allergies Allergen (clinical drug ingredient) Drug/Non Drug Allergy documented on EMR Reaction Allergy Type Onset Date Status amlodipine Norvasc itchy rash Drug Allergy Activ e Substance with sulfonamide structure and antibacterial mechanism of action (substance) Sulfa Antibiotics rash Drug Allergy Active Results Component Value Reference Range Notes CBC Reviewed date:12/12/2024 02:06:38 PM Interpretation: Performing Lab: Notes/Report: CXR Reviewed date:12/20/2024 08:34:18 AM Interpretation:Negative Performing Lab: Notes/Report: Negative REASON FOR VISIT still not feeling better Medications Medication SIG (Take, Route, Frequency, Duration) Notes Start Date End Date Status Lopressor 50 MG 1 tab(s) orally once daily 09/08/2016 Active Estradiol-Norethindrone Acet 1-0.5 MG ; Duration: 28 Active Lisinopril-hydroCHLOROthiazi de 20-12.5 MG 1 tab(s) orally once a day Active Atorvastatin Calcium 10 MG 1 tab(s) oral ly once a day Active Multivitamin - 1 tab(s) orally once a day Active Medrol 4 MG as directed orally daily; Duration: 6 days 12/02/2024 Active Spironolactone 50 MG 1 tablet Orally Onc e a day Active Cefuroxime Axetil 500 MG 1 tablet Orally every 12 hrs; Duration: 10 day(s) 12/02/2024 Active Ciprofloxacin HCl 0.2 % 0.25 ml into aff ected ear Otic every 12 hrs; Duration: 7 day(s) 12/02/2024 Active Loratadine 10 MG 1 tab(s) orally once a day Active Albuterol Sulfate HFA 108 (90 Base) MCG/ACT 1 puff as needed Inhalation qid and q2hprn 11/25/2024 Active Singulair 10 MG 1 tab(s) orally once a day Active Fluticasone Propionate 50 MCG/ACT 1 spray in each nostril Nasally Active Meloxicam 15 MG 1 tablet Orally Once a day; Duration: 90 days 07/18/2024 Active Vital Signs Weight 224.4 lbs 12/02/2024 Blood pressure systolic 128 mm Hg 12/03/19 25 Blood pressure diastolic 72 mm Hg 025 Heart Rate 97 /min 12/02/2024 Height 69 in 12/02/2024 BMI 33.13 kg/m2 12/02/2024 Encounters Encounter Location Date Provider Diagnosis [facility] [address] [facility] [address] [phone] 12/02/2024 Sherry Bolanos Otitis externa H60.9 0 ; Pneumonia J18.9 and Sinusitis J32.9 Assessments Encounter Date Diagnosis (ICD Code) Assessment Notes Treatment Notes Treatment Clinical Notes Section Notes 12/02/2024 Otitis externa (ICD-10 - H60.90) keep ear dry 12/02/2024 Pneumonia (ICD-10 - J18.9) continue with cough med 12/02/2024 Sinusitis (ICD-10 - J32.9) Plan Of Treatment Medication Medication Name Sig Start Date Stop Date Notes Medrol 4 MG as directed orally d aily; Duration: 6 days 12/02/2024 Cefuroxime Axetil 500 MG 1 tablet Orally every 12 hrs; Duration: 10 day(s) 12/02/2024 Ciprofloxacin HCl 0.2 % 0.25 ml into aff ected ear Otic every 12 hrs; Duration: 7 day(s) 12/02/2024 Loratadine 10 MG 1 tab(s) orally once a day Albuterol Sulfate HFA 108 (9 0 Base) MCG/ACT 1 puff as needed Inhalation qid and q2hprn 11/25/2024 Singulair 10 MG 1 tab(s) orally once a day Fluticasone Propionate 50 MCG/ACT 1 spray in each nostril Nasally Treatment Notes Assessment Notes Otitis externa keep ear dry Pneumonia continue with cough med Next Appt Details Follow Up: 4 days, Reason: Progress Notes * NEO GARCIAOB: [birth year] (64 yo F)Acc No.[id number]:12/02/2024 Progress Notes Patient: BARRY GUZMAN Provider: SEA Nielsen :1960 A ge:64 Y S ex:Female Date:12/02/2024 Address:[address] , [facility], [id number] Pcp:Pedro Valles Subjective: * Chief Complaints: * 1 . Still not feeling better. * HPI: H PI: 64 year old female presents with c/o Patient is here today for?Pt was seen here last Monday and tested positive for Flu A. Pt sts she is still not feeling better. E NT/respiratory: c/o cough P t sts she is coughing greyish colored phlem.? c/o nasal congestion P t sts she has yellow colored snot when blowing her nose. c/o ear pain P t sts she can not hear out of her right ear. c/o facial pain/pressure. c/o chest congestion. Denies : smoking. D enies : body aches. C ardiology: c/o Fatigue P t sts when she is standing for a while or is in the shower she breaks in sweats. Pt sts she feels very tired as well. * ROS: D ERMATOLOGY: no R kusum. n o H kristine. G ASTROENTEROLOGY: no V omiting. n o D iarrhea. U ROLOGY: no D ifficulty urinating. n o B lood in urine. 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 * Surgical History: H eart Cath November 2017. * Hospitalization/Major Diagno stic Procedure: E R visit, stabbing side pains 05/03/07. * Family History: F ather: alive, [place], HTN, CABGx4, ulcers. M other: alive, arthritis, HTN, hypothyroid. P aternal Grand Father: . P aternal Grand Mother: . M aternal Grand Father: . M aternal Grand Mother: . 3 brother(s) . 1 son(s) , 1 daughter(s) . .? * Social History: C URRENT TOBACCO USE S moking Status: Patient does NOT smoke. C affeine: yes, frequency:. Exercise: yes. Home smoke detector use: yes. Marital Status: . New since last visit: none. Past smoking status: no. Recreational drug use: no. Alcohol: socially, Type: , Frequency: ,Years: , Determination:. Sexually active: yes. * Medications: T aking Spironolactone 50 MG Tablet 1 tablet Orally Once a day , Taking Lopressor 50 MG Tablet 1 tab(s) orally once daily , Taking Multivitamin - Tablet 1 tab(s) orally once a day , Taking Atorvastatin Calcium 10 MG Tablet 1 tab(s) orally once a day , Taking Lisinopril-hydroCHLOROthiazide 20-12.5 MG Tablet 1 tab(s) orally once a day , Taking Estradiol-Norethindrone Acet 1-0.5 MG Tablet , Taking Loratadine 10 MG Tablet 1 tab(s) orally once a day , Taking Singulair 10 MG Tablet 1 tab(s) orally once a day , Taking Meloxicam 15 MG Tablet 1 tablet Orally Once a day , Taking Fluticasone Propionate 50 MCG/ACT Suspension 1 spray in each nostril Nasally , Taking Albuterol Sulfate HFA 108 (90 Base) MCG/ACT Aerosol Solution 1 puff as needed Inhalation qid and q2hprn , Discontinued Tamiflu 75 MG Capsule 1 capsule Orally Twice a day , Discontinued Promethazine-DM 6.25-15 MG/5ML Syrup 5 ml as needed Orally every 6 hrs prn , Medication List reviewed and reconciled with the patient * Allergies: N orvasc: itchy rash, Sulfa Antibiotics: rash. Objective: * Vitals: W t: 224.4, Temp: denies fever, BP: 128/72, HR: 101,97, O2 Sat:96%, Nurse: delvin, Ht: 69, BMI:33.13. * Examination: E NT/Respiratory: General Appearance: well nourished and hydrated, NAD, alert; appears not to feel well. E yes: sclera and conjunctiva clear. E ars: edema right canal; left canal and TM appear normal. N ose : nares patent. S inuses : tender maxillary sinuses bilaterally. O ral cavity : no erythema or exudate seen on pharynx. N deven : supple, no cervical lymphadenopathy. H eart : RRR. L ungs: Right crackels and scattered wheezing; some left basilar crackles posteriorly. Assessment: * Assessment: 1. O titis externa - H60.90 (Primary) S pecify :right 2 . P neumonia - J18.9 3 . S inusitis - J32.9 ? Plan: * Treatment: 2. P neumonia Start Cefuroxime Axetil Tablet, 500 MG, 1 tablet, Orally, every 12 hrs, 10 day(s), 20 Tablet; C ontinue Albuterol Sulfate HFA Aerosol Solution, 108 (90 Base) MCG/ACT, 1 puff as needed, Inhalation, qid and q2hprn; C ontinue Fluticasone Propionate Suspension, 50 MCG/ACT, 1 spray in each nostril, Nasally; C ontinue Singulair Tablet, 10 MG, 1 tab(s), orally, once a day; C ontinue Loratadine Tablet, 10 MG, 1 tab(s), orally, once a day. L AB: CBC (Collection Date & Time - 12/12/2024) ?Imaging: CXR (Performed Date - 12/02/2024)?Negative* Sherry Bolanos 12/20/2024 8:34:04 AM > was discussed at OV Notes: continue with cough med??3.?Sinusitis? Start Medrol Tablet Therapy Pack, 4 MG, as directed, orally, daily, 6 days, 1, Refills 0.? * Procedure Codes: 9 4760 PULSE OX, 3074F SYST BP LT 130 MM HG, 3078F DIAST BP < 80 MM HG * Follow Up: 4 days * Images: Billing Information: * Visit Code: 67872 Office Visit, Est Pt., Level 3. * Procedure Codes: 56954 PULSE OX. 3074F SYST BP LT 130 MM HG. 3078F DIAST BP < 80 MM HG. * Electronic signature of Tonia Bolanos MANOLO on 03/17/2025 at 04:20 PM EDT Sign off status: Pending * Provider: SEA Nielsen Date: 0 12/02/2024 Generated for Printcaitlin mcdonald/Faxing/eTransmitting on: 0 03/17/2025 04:20 PM EDT History and Physical Notes * HPI (History of Present Illness) Category Sub-Category Detail Notes Category Not es ENT/respiratory facial pain/pressure ear pain Pt sts she can not h ear out of her right ear cough Pt sts she is coughi ng greyish colored phlem chest congestion nasal congestion Pt sts she has yello w colored snot when blowing her nose smoking body aches Cardiology Fatigue Pt sts when she is standing for a while or is in the shower she breaks in sweats. Pt sts she feels very tired as well HPI Patient is here today for Pt was seen here last Monday and tested positive for Flu A. Pt sts she is still not feeling better Examination Category Sub-Category Detail Notes Category Not es ENT/Respiratory Oral cavity : no erythema or exudate s een on pharynx Sinuses : tender maxillary sin uses bilaterally Ears: edema right canal; l eft canal and TM appear normal Neck : supple, no cervical lymphadenopathy Heart : RRR Lungs: Right crackels and s cattered wheezing; some left basilar crackles posteriorly General Appearance: well nourished and h ydrated, NAD, alert; appears not to feel well Nose : nares patent Eyes: sclera and conjuncti va clear
--- OUTSIDE RECORDS SUMMARY | 2024-12-06 05:45 | XMS_ITS ---
Author Organization [facility] Address [address] [facility] [address] [place] [phone] Care Team Providers Care Wealth Management Consultant Name Role Phone Viji Vallesian Primary Care Provider Paz Marrufo Unavailable [phone] Allergies Allergen (clinical drug ingredient) Drug/Non Drug Allergy documented on EMR Reaction Allergy Type Onset Date Status amlodipine Norvasc itchy rash Drug Allergy Activ e Substance with sulfonamide structure and antibacterial mechanism of action (substance) Sulfa Antibiotics rash Drug Allergy Active Results Component Value Reference Range Notes CBC Fingerstick (in house) Reviewed date:12/06/2024 02:34:39 PM Interpretation: Performing Lab: Notes/Report: wbc 18.3 3.5 - 10 lym 23.2 15 - 50 mid 5.9 2 - 15 gran 70.9 35 - 80 rbc 4.83 3.5 - 5.5 hgb 14.0 11.5 - 16.5 hct 41.3 35 - 55 mcv 85.6 75 - 100 mch 28.9 25 - 35 mchc 33.8 31 - 38 plat 260 100 - 400 REASON FOR VISIT poss pneumonia Medications Medication SIG (Take, Route, Frequency, Duration) Notes Start Date End Date Status Estradiol-Norethindrone Acet 1-0.5 MG ; Duration: 28 Active Meloxicam 15 MG 1 tablet Orally Once a day; Duration: 90 days 07/18/2024 Active Lisinopril-hydroCHLOROthiazi de 20-12.5 MG 1 tab(s) orally once a day Active Ciprofloxacin HCl 0.2 % 0.25 ml into aff ected ear Otic every 12 hrs; Duration: 7 day(s) 12/02/2024 Active Medrol 4 MG as directed orally daily; Duration: 6 days 12/02/2024 Active Atorvastatin Calcium 10 MG 1 tab(s) oral ly once a day Active Zithromax Z-Palomo 250 MG 2 pills first day then one daily for 4 days orally as directed; Duration: 5 days 12/06/2024 Active Lopressor 50 MG 1 tab(s) orally once daily 09/08/2016 Active Multivitamin - 1 tab(s) orally once a day Active Loratadine 10 MG 1 tab(s) orally once a day Active Albuterol Sulfate HFA 108 (90 Base) MCG/ACT 1 puff as needed Inhalation qid and q2hprn Active Fluticasone Propionate 50 MCG/ACT 1 spray in each nostril Nasally Active Cefuroxime Axetil 500 MG 1 tablet Orally every 12 hrs; Duration: 10 day(s) Active Singulair 10 MG 1 tab(s) orally once a day Active Spironolactone 50 MG 1 tablet Orally Onc e a day Active Problems Problem Type SNOMED Code ICD Code Onset Dates Problem Status W/U Status Risk Notes Problem Obese class I ([id number]) BMI 33.0-33.9,a dult (Z68.33) Active confirmed Vital Signs Weight 225 lbs 12/06/2024 Blood pressure systolic 120 mm Hg 12/07/19 25 Blood pressure diastolic 68 mm Hg 025 Heart Rate 71 /min 12/06/2024 Height 69 in 12/06/2024 BMI 33.22 kg/m2 12/06/2024 Encounters Encounter Location Date Provider Diagnosis [facility] [address] [facility] [address] [phone] 12/06/2024 Paz Crowdy Pneumonia J18.9 ; Essential hypertension I10 and BMI 33.0-33.9,adult Z68.33 Assessments Encounter Date Diagnosis (ICD Code) Assessment Notes Treatment Notes Treatment Clinical Notes Section Notes 12/06/2024 Pneumonia (ICD-10 - J18.9) continue with cough med 12/06/2024 Essential hypertension (ICD-10 - I10) 12/06/2024 BMI 33.0-33.9,adult (ICD-10 - Z68.33) Plan Of Treatment Medication Medication Name Sig Start Date Stop Date Notes Zithromax Z-Palomo 250 MG 2 pills first day then one daily for 4 days orally as directed; Duration: 5 days 12/06/2024 Loratadine 10 MG 1 tab(s) orally once a day Albuterol Sulfate HFA 108 (9 0 Base) MCG/ACT 1 puff as needed Inhalation qid and q2hprn Fluticasone Propionate 50 MCG/ACT 1 spray in each nostril Nasally Cefuroxime Axetil 500 MG 1 tablet Orally every 12 hrs; Duration: 10 day(s) Singulair 10 MG 1 tab(s) orally once a day Treatment Notes Assessment Notes Pneumonia continue with cough med Next Appt Details Follow Up: 1 Week, Reason: Progress Notes * NEO GARCIAOB: [birth year] (64 yo F)Acc No.[id number]:12/06/2024 Progress Notes Patient: BARRY GUZMAN Provider: COURTNEY Chau :1960 A ge:64 Y S ex:Female Date:12/06/2024 Address:[address] , [facility], [id number] Pcp:Pedro Valles Subjective: * Chief Complaints: * 1 . Poss pneumonia. * HPI: H PI: 64 year old female presents with c/o Patient is here today for?Pt is here today for possible pneumonia. Pt was seen on the and tested positive for flu A, and came back on Monday for not feeling any better. Pt sts she still does feel well ? ? . E NT/respiratory: c/o cough s mall cough. c/o nasal congestion P t sts she has sinus congestion . c/o ear pain P t sts she is still having trouble with her right ear bothering her. * ROS: D ERMATOLOGY: no R kusum. n o H kristine. G ASTROENTEROLOGY: no V omiting. n o D iarrhea. U ROLOGY: no D ifficulty urinating. n o B lood in urine. 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 * Surgical History: H eart Cath November 2017. * Hospitalization/Major Diagno stic Procedure: E R visit, stabbing side pains 05/03/07. * Family History: F ather: alive, [place], HTN, CABGx4, ulcers. M other: alive, arthritis, [...] Estradiol-Norethindrone Acet 1-0.5 MG Tablet , Taking Meloxicam 15 MG Tablet 1 tablet Orally Once a day , Taking Medrol 4 MG Tablet Therapy Pack as directed orally daily , Taking Ciprofloxacin HCl 0.2 % Solution 0.25 ml into affected ear Otic every 12 hrs , Taking Cefuroxime Axetil 500 MG Tablet 1 tablet Orally every 12 hrs , Taking Albuterol Sulfate HFA 108 (90 Base) MCG/ACT Aerosol Solution 1 puff as needed Inhalation qid and q2hprn , Taking Fluticasone Propionate 50 MCG/ACT Suspension 1 spray in each nostril Nasally , Taking Singulair 10 MG Tablet 1 tab(s) orally once a day , Taking Loratadine 10 MG Tablet 1 tab(s) orally once a day , Medication List reviewed and reconciled with the patient * Allergies: N orvasc: itchy rash, Sulfa Antibiotics: rash. Objective: * Vitals: W t: 225, Temp: 97.7, BP: 120/68, HR: 71, O2 Sat: 99% on RA, Nurse: mmh, Ht: 69, BMI:33.22. * Examination: E NT/Respiratory: General Appearance: N AD. E yes: sclera and conjunctiva clear. E ars: right TM with effusion but no erythema, l eft TM normal. N ose : nares patent. S inuses : tender maxillary sinuses bilaterally. O ral cavity : no erythema or exudate seen on pharynx. N deven : supple, no cervical lymphadenopathy. H eart : RRR. L ungs: decreased breath sounds, scattered rhonchi. Assessment: * Assessment: 1. P neumonia - J18.9 (Primary) 2 . E ssential hypertension - I10 ? 3 . B [place] 33.0-33.9,adult - Z68.33 Plan: * Treatment: Value Reference Range w bc 18.3 3.5 - 10 * l ym 23.2 15 - 50 * m id 5.9 2 - 15 * g ran 70.9 35 - 80 * r bc 4.83 3.5 - 5.5 * h gb 14.0 11.5 - 16.5 * h ct 41.3 35 - 55 * m cv 85.6 75 - 100 * m ch 28.9 25 - 35 * m chc 33.8 31 - 38 * p lat 260 100 - 400 * Shilpa Brunner 12/06/2024 10:0 4:15 AM > Provider reviewed results while patient in office. Notes: continue with cough med?? * Procedure Codes: 9 4760 [place], [address] CAPILLARY BLOOD DRAW, 37906 CBC WITH AUTO DIFF, 3074F SYST BP LT 130 MM HG, 3078F DIAST BP < 80 MM HG * Follow Up: 1 Week * Images: Billing Information: * Visit Code: 46570 Office Visit, Est Pt., Level 3. * Procedure Codes: [address] [place]. [address] CAPILLARY BLOOD DRAW. 26857 CBC WITH AUTO DIFF. 3074F SYST BP LT 130 MM HG. 3078F DIAST BP < 80 MM HG. * Electronic signature of COURTNEY Gaitan on 03/17/2025 at 04:21 PM EDT Sign off status: Pending * Provider: COURTNEY Chau Date: 0 12/06/2024 Generated for Miles mcdonald/Rebekah/eTransmitting on: 0 03/17/2025 04:21 PM EDT History and Physical Notes * HPI (History of Present Illness) Category Sub-Category Detail Notes Category Not es ENT/respiratory ear pain Pt sts she is st ill having trouble with her right ear bothering her cough small cough nasal congestion Pt sts she has sinus congestion HPI Patient is here today for Pt is here today for possible pneumonia. Pt was seen on the and tested positive for flu A, and came back on Monday for not feeling any better. Pt sts she still does feel well Examination Category Sub-Category Detail Notes Category Not es ENT/Respiratory Oral cavity : no erythema or exudate s een on pharynx Sinuses : tender maxillary sin uses bilaterally Ears: right TM with effusi on but no erythema, left TM normal Neck : supple, no cervical lymphadenopathy Heart : RRR Lungs: decreased breath maryam nds, scattered rhonchi General Appearance: NAD Nose : nares patent Eyes: sclera and conjuncti va clear
--- OUTSIDE RECORDS SUMMARY | 2024-12-13 11:30 | XMS_ITS ---
Author Organization [facility] Address [address] [facility] [address] [place] [phone] Care Team Providers Care Drain Cleaner Name Role Phone Viji Vallesian Primary Care Provider Paz Marrufo Unavailable [phone] Allergies Allergen (clinical drug ingredient) Drug/Non Drug Allergy documented on EMR Reaction Allergy Type Onset Date Status amlodipine Norvasc itchy rash Drug Allergy Activ e Substance with sulfonamide structure and antibacterial mechanism of action (substance) Sulfa Antibiotics rash Drug Allergy Active Results Component Value Reference Range Notes CBC Fingerstick (in house) Reviewed date:12/13/2024 04:12:08 PM Interpretation: Performing Lab: Notes/Report: wbc 12.2 3.5 - 10 lym 28.1 15 - 50 mid 8.3 2 - 15 gran 63.6 35 - 80 rbc 4.23 3.5 - 5.5 hgb 12.2 11.5 - 16.5 hct 36.3 35 - 55 mcv 85.9 75 - 100 mch 28.9 25 - 35 mchc 33.6 31 - 38 plat 256 100 - 400 REASON FOR VISIT 1 week fu Medications Medication SIG (Take, Route, Frequency, Duration) Notes Start Date End Date Status Singulair 10 MG 1 tab(s) orally once a day Active Loratadine 10 MG 1 tab(s) orally once a day Active Lisinopril-hydroCHLOROthiazi de 20-12.5 MG 1 tab(s) orally once a day Active Estradiol-Norethindrone Acet 1-0.5 MG ; Duration: 28 Active Meloxicam 15 MG 1 tablet Orally Once a day; Duration: 90 days 07/18/2024 Active Lopressor 50 MG 1 tab(s) orally once daily 09/08/2016 Active Multivitamin - 1 tab(s) orally once a day Active Spironolactone 50 MG 1 tablet Orally Onc e a day Active Ciprofloxacin-dexAMETHasone 0.3-0.1 % 4 drops into affected ear Otic Twice a day 12/13/2024 Active Atorvastatin Calcium 10 MG 1 tab(s) oral ly once a day Active Albuterol Sulfate HFA 108 (90 Base) MCG/ACT 1 puff as needed Inhalation qid and q2hprn Active Fluticasone Propionate 50 MCG/ACT 1 spray in each nostril Nasally Active Doxycycline Monohydrate 100 MG 1 capsule Orally Twice a day; Duration: 7 days 12/13/2024 Active Vital Signs Weight 230.2 lbs 12/13/2024 Blood pressure systolic 120 mm Hg 12/14/19 25 Blood pressure diastolic 68 mm Hg 025 Heart Rate 73 /min 12/13/2024 Height 69 in 12/13/2024 BMI 33.99 kg/m2 12/13/2024 Encounters Encounter Location Date Provider Diagnosis [facility] [address] [facility] [address] [place] [phone] 12/13/2024 Paz Crowdy Pneumonia J18.9 ; Impacted cerumen, right ear H61.21 and Acute otitis externa of right ear, unspecified type H60.501 Assessments Encounter Date Diagnosis (ICD Code) Assessment Notes Treatment Notes Treatment Clinical Notes Section Notes 12/13/2024 Pneumonia (ICD-10 - J18.9) continue with cough med 12/13/2024 Impacted cerumen, right ear (ICD-10 - H61.21) Ear irrigated. 12/13/2024 Acute otitis externa of right ear, unspecified type (ICD-10 - H60.501) Plan Of Treatment Medication Medication Name Sig Start Date Stop Date Notes Ciprofloxacin-dexAMETHasone 0.3-0.1 % 4 drops into affected ear Otic Twice a day 12/13/2024 Albuterol Sulfate HFA 108 (9 0 Base) MCG/ACT 1 puff as needed Inhalation qid and q2hprn Fluticasone Propionate 50 MCG/ACT 1 spray in each nostril Nasally Doxycycline Monohydrate 100 MG 1 capsule Orally Twice a day; Duration: 7 days 12/13/2024 Treatment Notes Assessment Notes Pneumonia continue with cough med Impacted cerumen, right ear Ear irrigate d. Next Appt Details Follow Up: prn, Reason: Progress Notes * NEO GARCIAOB: [birth year] (64 yo F)Acc No.[id number]:12/13/2024 Progress Notes Patient: BARRY GUZMAN Provider: COURTNEY Chau :1960 A ge:64 Y S ex:Female Date:12/13/2024 Address:[address], [place], [id number] Pcp:Pedro Valles Subjective: * Chief Complaints: * 1 . 1 week fu. * HPI: H PI: 64 year old female presents with c/o Here for follow up on:?Pt is here today for a 1 week f/u on pneumonia. Pt sts she does feel better, but sts her right ear still feels stopped up and sts she cannot hear very well out of it. Pt sts she does still feel winded as well. * ROS: D ERMATOLOGY: no R kusum. n o H kristine. G ASTROENTEROLOGY: no V omiting. n o D iarrhea. U ROLOGY: no D ifficulty urinating. n o B lood in urine. 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 * Surgical History: H eart Cath November 2017. * Hospitalization/Major Diagno stic Procedure: E R visit, stabbing side pains 05/03/07. * Family History: F ather: alive, [place], HTN, CABGx4, ulcers. M other: alive, arthritis, [...] tablet Orally Once a day , Taking Albuterol Sulfate HFA 108 (90 Base) MCG/ACT Aerosol Solution 1 puff as needed Inhalation qid and q2hprn , Taking Singulair 10 MG Tablet 1 tab(s) orally once a day , Taking Loratadine 10 MG Tablet 1 tab(s) orally once a day , Discontinued Medrol 4 MG Tablet Therapy Pack as directed orally daily , Discontinued Ciprofloxacin HCl 0.2 % Solution 0.25 ml into affected ear Otic every 12 hrs , Discontinued Cefuroxime Axetil 500 MG Tablet 1 tablet Orally every 12 hrs , Discontinued Fluticasone Propionate 50 MCG/ACT Suspension 1 spray in each nostril Nasally , Discontinued Zithromax Z-Palomo 250 MG Tablet 2 pills first day then one daily for 4 days orally as directed , Medication List reviewed and reconciled with the patient * Allergies: N orvasc: itchy rash, Sulfa Antibiotics: rash. Objective: * Vitals: W t: 230.2, Temp: 97.7, BP: 120/68, HR: 73, Nurse: [facility], Ht: 69, BMI:33.99. * Examination: G eneral Examination: General Appearance: N AD. H EENT: s clera and conjunctiva clear, PERRLA, right canal with cerumen, once irrigated there is some irritation, left TM and canal normal. O ral cavity: n o lesions, mucosa moist and WNL, no erythema. N deven: supple, no lymphadenopathy. C hest: n ormal shape and expansion. H eart: R SR.?Lungs: c lear to auscultation. A bdomen: bowel sounds present, soft and nontender, no organomegaly or masses, no guarding or rigidity. Assessment: * Assessment: 1. P neumonia - J18.9 (Primary) 2 . I mpacted cerumen, right ear - H61.21? 3. A cute otitis externa of right ear, unspecified type - H60.501 ? Plan: * Treatment: Value Reference Range w bc 12.2 3.5 - 10 * l ym 28.1 15 - 50 * m id 8.3 2 - 15 * g ran 63.6 35 - 80 * r bc 4.23 3.5 - 5.5 * h gb 12.2 11.5 - 16.5 * h ct 36.3 35 - 55 * m cv 85.9 75 - 100 * m ch 28.9 25 - 35 * m chc 33.6 31 - 38 * p lat 256 100 - 400 * Shilpa Brunner 12/13/2024 04:0 4:08 PM > Provider reviewed results while patient in office.Paz Marrufo 12/13/2024 4:12:04 PM > Notes: continue with cough med??2.?Impacted cerumen, right ear? Notes: Ear irrigated.??3.?Acute otitis externa of right ear, unspecified type? Start Ciprofloxacin-dexAMETHasone Suspension, 0.3-0.1 %, 4 drops into affected ear, Otic, Twice a day, 1, Refills 0.?? * Procedure Codes: 3 6416 CAPILLARY BLOOD DRAW, [address]28[address] CBC WITH AUTO DIFF, 63725 EAR IRRIGATION, 3074F SYST BP LT 130 MM HG, 3078F DIAST BP < 80 MM HG * Follow Up: p rn * Images: Billing Information: * Visit Code: 34599 Office Visit, Est Pt., Level 3. Modifiers: 25 * Procedure Codes: 85921 CAPILLARY BLOOD DRAW. 31860 CBC WITH AUTO DIFF. 90458 EAR IRRIGATION. 3074F SYST BP LT 130 MM HG. 3078F DIAST BP < 80 MM HG. * Electronic signature of COURTNEY Gaitan on 03/17/2025 at 04:21 PM EDT Sign off status: Pending * Provider: COURTNEY Chau Date: 0 12/13/2024 Generated for Aurelioi ng/Rebekah/eTransmitting on: 0 03/17/2025 04:21 PM EDT History and Physical Notes * HPI (History of Present Illness) Category Sub-Category Detail Notes Category Not es HPI Here for follow up on: Pt is her e today for a 1 week f/u on pneumonia. Pt sts she does feel better, but sts her right ear still feels stopped up and sts she cannot hear very well out of it. Pt sts she does still feel winded as well Examination Category Sub-Category Detail Notes Category Not es General Examination HEENT: sclera and c onjunctiva clear, PERRLA, right canal with cerumen, once irrigated there is some irritation, left TM and canal normal Heart: RSR Lungs: clear to auscultatio n Abdomen: bowel sounds present , soft and nontender, no organomegaly or masses, no guarding or rigidity General Appearance: NAD Neck: supple, no lymphaden opathy Oral cavity: no lesions, mucosa m oist and WNL, no erythema Chest: normal shape and exp ansion
--- OUTSIDE RECORDS SUMMARY | 2025-03-17 16:21 | XMS_ITS ---
Author Organization Unknown Medications Medication Instructions Effective Dates (start - stop) Status hydrochlorothiazide 12.5 MG / lisinopril 20 MG Oral Tablet [id number]:00:00.000+0 0 :00 - Completed hydrochlorothiazide 12.5 MG / lisinopril 20 MG Oral Tablet 3218-50-54W96:00:00.000+0 0 :00 - Completed hydrochlorothiazide 12.5 MG / lisinopril 20 MG Oral Tablet [id number]:00:00.000+0 0 :00 - Completed hydrochlorothiazide 12.5 MG / lisinopril 20 MG Oral Tablet 6428-43-12T24:00:00.000+0 0 :00 - Completed estradiol 1 MG Oral [...] - Completed atorvastatin 10 MG Oral Tablet [id number]:00:00.000+00 :00 - Completed atorvastatin 10 MG Oral Tablet 2 782-40-72T69:00:00.000+00 :00 - Completed [id number] 200 ACTUAT albuter ol 0.09 MG/ACTUAT Metered Dose Inhaler [id number]:00:00.000 +00 :00 - Completed fluticasone propionate 0.05 MG/ACTUAT Metered Dose Nasal [place] [id number]:00:00 .000+00 :00 - Completed meloxicam 7.5 MG Oral Tablet 202 10-30-24:00:00.000+00 :00 - Completed meloxicam 7.5 MG Oral Tablet 202 10-27-26:00:00.000+00 :00 - Completed meloxicam 7.5 MG Oral Tablet 10-09-04:00:00.000+00 :00 - Completed meloxicam 7.5 MG Oral Tablet 202 10-06-07:00:00.000+00 :00 - Completed {21 (methylprednisolone 4 MG Oral Tablet) } Pack [id number]:00:00.000+00 :00 - Completed [id number] 200 ACTUAT albuter ol 0.09 MG/ACTUAT Metered Dose Inhaler [id number]:00:00.000 +00 :00 - Completed [id number] 200 ACTUAT albuter ol 0.09 MG/ACTUAT Metered Dose Inhaler [id number]:00:00.000 +00 :00 - Completed amlodipine 5 MG Oral Tablet 2022:00:00.000+00 :00 - Completed montelukast 10 MG Oral Tablet 20 18-08-12:00:00.000+00 :00 - Completed montelukast 10 MG Oral Tablet 20 19-05-09:00:00.000+00 :00 - Completed montelukast 10 MG Oral Tablet 20 18-02-24:00:00.000+00 :00 - Completed montelukast 10 MG Oral Tablet 20 18-11-27:00:00.000+00 :00 - Completed atorvastatin 10 MG Oral Tablet 2 [id number]:00:00.000+00 :00 - Completed medroxyprogesterone acetate 2.5 MG Oral Tablet [id number]:00:00.000+00 :00 - Completed medroxyprogesterone acetate 2.5 MG Oral Tablet [id number]:00:00.000+00 :00 - Completed medroxyprogesterone acetate 2.5 MG Oral Tablet [id number]:00:00.000+00 :00 - Completed atorvastatin 10 MG Oral Tablet [id number]:00:00.000+00 :00 - Completed fluticasone propionate 0.05 MG/ACTUAT Metered Dose Nasal [place] [id number]:00:00 .000+00 :00 - Completed fluticasone propionate 0.05 MG/ACTUAT Metered Dose Nasal [place] [id number]:00:00 .000+00 :00 - Completed fluticasone propionate 0.05 MG/ACTUAT Metered Dose Nasal [place] [id number]:00:00 .000+00 :00 - Completed fluticasone propionate 0.05 MG/ACTUAT Metered Dose Nasal [place] [id number]:00:00 .000+00 :00 - Completed fluticasone propionate 0.05 MG/ACTUAT Metered Dose Nasal [place] [id number]:00:00 .000+00 :00 - Completed fluticasone propionate 0.05 MG/ACTUAT Metered Dose Nasal [place] [id number]:00:00 .000+00 :00 - Completed fluticasone propionate 0.05 MG/ACTUAT Metered Dose Nasal [place] [id number]:00:00 .000+00 :00 - Completed amlodipine 5 MG Oral Tablet 2021:00:00.000+00 :00 - Completed amlodipine 5 MG Oral Tablet 2021:00:00.000+00 :00 - Completed amlodipine 5 MG Oral Tablet 2022:00:00.000+00 :00 - Completed amlodipine 5 MG Oral Tablet 2021:00:00.000+00 :00 - Completed bisoprolol fumarate 5 MG Oral Tablet [id number]:00:00.000+00 :00 - Completed bisoprolol fumarate 5 MG Oral Tablet [id number]:00:00.00000 :00 - Completed bisoprolol fumarate 5 MG Oral Tablet [id number]:00:00.000+00 :00 - Completed bisoprolol fumarate 5 MG Oral Tablet [id number]:00:00.000+00 :00 - Completed {6 (azithromycin 250 MG Oral Tablet) } Pack [id number]:00:00.00000 :00 - Completed amoxicillin 500 MG Oral Capsule [id number]:00:00.000+00 :00 - Completed Patient Care team information Name Category Status Period Participants - - Proposed period not known -
--- OUTSIDE RECORDS SUMMARY | 2025-03-17 16:21 | XMS_ITS | Patient Health Record ---
Author Organization [facility] Address [address] [facility] [address] [place] [phone] Care Team Providers Care Call Box Wirer Name Role Phone Viji Vallesian Primary Care Provider Sherry Bolanos Unavailable [phone] Paz Marrufo Unavailable [phone] Allergies Allergen (clinical drug ingredient) Drug/Non Drug [...] 08:34:18 AM Interpretation:Negative Performing Lab: Notes/Report: Negative CBC Fingerstick (in house) Reviewed date:12/06/2024 02:34:39 [...] - 38 plat 260 100 - 400 CBC Fingerstick (in house) Reviewed date:12/13/2024 04:12:08 [...] - 38 plat 256 100 - 400 H-CBC Reviewed date:12/02/2024 03:37:24 PM Interpretation: Performing Lab: Notes/Report: WBC 14.4 4.8-10.8 K/mm3 RBC 4.99 4.20-5.40 M/mm3 HGB 14.3 12.2-16.2 g/dL HCT 42.6 37.0-47.0 % MCV 85.4 81-99 fl MCH 28.7 27.0-31.2 pg MCHC 33.6 31.8-35.4 g/dL RDW 12.6 11.5-17.5 % PLT 423 142-424 K/mm3 MPV 9.7 7.4-10.4 fl NE% 76.6 37.0-80.0 % LY% 12.9 10-50 % MO% 8.6 1.7-9.3 % EO% 1.0 0.1-12.0 % BA% 0.3 0.1-2.0 % NE# 11.1 1.8-7.8 K/mm3 LY# 1.9 0.7-4.5 K/mm3 MO# 1.2 0.1-1.0 K/mm3 EO# 0.2 0.0-0.4 K/mm3 BA# 0.0 0-0.2 K/mm3 Covid test (in house) Reviewed date:11/25/2024 01:25:32 PM Interpretation:neg Performing Lab: Notes/Report: neg Result: neg Rapid Strep- Inhouse Reviewed date:11/25/2024 01:26:05 PM Interpretation:neg Performing Lab: Notes/Report: neg strep test neg Influenza Screen (in house) Reviewed date:11/25/2024 01:25:49 PM Interpretation:pos fluA Performing Lab: Notes/Report: pos fluA results pos fluA CBC Venipuncture (in house) Reviewed date:07/18/2024 12:54:06 PM Interpretation: Performing Lab: Notes/Report: wbc 7.8 3.5 - 10 lymph 24.2 15 - 50 mid 6.2 2 - 15 gran 69.6 35 - 80 rbc 4.74 3.5 - 5.5 hgb 13.7 11.5 - 16.5 hct 41.3 35 - 55 mcv 87.1 75 - 100 mch 29.0 25 - 35 mchc 33.3 31 - 38 platlet 294 100 - 400 P-Comprehensive Metabolic Pa daniel (CMP) Reviewed date:07/21/2024 10:55:50 PM Interpretation: Performing Lab: Notes/Report: Test performed by [facility] [address] [place] [address] , [address], [place] [address] Mane Dowling MD, [employer] CLIA: [id number] Sodium 140 135-145 mmol/L Potassium 4.2 3.5-5.3 mmol/L Chloride 100 97-108 mmol/L CO2 31 22-32 mmol/L Glucose 104 65-99 mg/dL BUN 13 8-23 mg/dL Creatinine 0.88 0.50-1.00 mg/dL Calcium 9.4 8.6-10.4 mg/dL eGFR by Creatinine 74 >59 mL/min/1.73m2 Protein 6.9 6.0-8.3 g/dL Albumin 4.4 3.5-5.3 g/dL Alkaline Phosphatase 97 35-121 IU/L ALT (SGPT) 19 <5-47 IU/L AST (SGOT) 18 <5-40 IU/L Bilirubin, Total 1.0 <0.2-1.2 mg/dL A/G Ratio 1.8 1.1-2.5 [facility] Reviewed date:07/21/2024 10:55:50 PM Interpretation: Performing Lab: Notes/Report: Test performed by [facility] [address] [place] [address] , [address], [place] [address] Mane Dowling MD, [employer] CLIA: [id number] Erythrocyte Sedimentation Rate (ESR), Automated 14 <31 mm/hr Rheumatoid Factor <10 <14.1 IU/mL C-Reactive Protein (CRP) 0.17 <0.50 mg/dL Antinuclear Antibodies (GINA) Screen, Reflex GINA 9 Panel Negative Negative This test is performed by Multiplex Bead Immunoassay methodology. Antinuclear Antibodies (GINA) Result Note SEE COMMENT For positive Autoantibodies, please refer to the interpretive chart here: [email or web address] CCP Antibodies <0.5 <0.5-3.0 U/mL P-Lipid Panel Reviewed date:07/21/2024 10:55:50 PM Interpretation: Performing Lab: Notes/Report: Test performed by [facility], [address] , [address], [place] [address] Mane Dowling MD, [employer] CLIA: [id number] Cholesterol 129 <200 mg/dL Triglycerides 69 <150 mg/dL HDL Cholesterol 41 >39 mg/dL Cholesterol / HDL Ratio 3.15 0.00-4.44 Ratio Non-HDL Cholesterol 88 <130 mg/dL LDL Cholesterol (Calculation) 74 <130 mg/dL LDL Cholesterol Levels* Less than 100 mg/dL Optimal 100 to 129 mg/dL Near Optimal/ Above Optimal 130 to 159 mg/dL Borderline High 160 to 189 mg/dL High 190 mg/dL and above Very High * Categories as recommended by the 2004 ATPIII guidelines LDL/HDL Ratio 1.8 <3.3 Ratio LDL Cholesterol Patient History Test Date: 07/18/2024 LDL Results: 74 Units: mg/dL % Change: - P-Magnesium Reviewed date:07/21/2024 10:55:50 PM Interpretation: Performing Lab: Notes/Report: Test performed by [facility] [address] [place] [address] , [address], [place] [address] Mane Dowling MD, [employer] CLIA: [id number] Magnesium 2.1 1.6-2.4 mg/dL P-Vitamin D 25-Hydroxy Reviewed date:07/21/2024 10:55:50 PM Interpretation: Performing Lab: Notes/Report: Test performed by [facility] [address] [place] [address] , [address], [place] [address] Mane Dowling MD, [employer] CLIA: [id number] Vitamin D 25-Hydroxy 14.9 30.0-100.0 ng/mL Interpretation of Vitamin D 25 OH: < 20 ng/mL - Deficiency 20 - 29 ng/mL - Insufficiency 30 - 100 ng/mL - Sufficiency > 100 ng/mL - Super-therapeutic- toxicity may occur above this level. Clinical correlation required. Medications Medication SIG (Take, Route, Frequency, Duration) Notes Start Date End Date Status Albuterol Sulfate HFA 108 (90 Base) MCG/ACT 1 puff as needed Inhalation qid and q2hprn Active Lopressor 50 MG 1 tab(s) orally once daily 09/08/2016 Active Singulair 10 MG 1 tab(s) orally once a day Active Fluticasone Propionate 50 MCG/ACT 1 spray in each nostril Nasally Active Multivitamin - 1 tab(s) orally once a day Active Loratadine 10 MG 1 tab(s) orally once a day Active Ciprofloxacin-dexAMETHasone 0.3-0.1 % 4 drops into affected ear Otic Twice a day 12/13/2024 Active Doxycycline Monohydrate 100 MG 1 capsule Orally Twice a day; Duration: 7 days 12/13/2024 Active Atorvastatin Calcium 10 MG 1 tab(s) oral ly once a day Active Lisinopril-hydroCHLOROthiazi de 20-12.5 MG 1 tab(s) orally once a day Active Estradiol-Norethindrone Acet 1-0.5 MG ; Duration: 28 Active Meloxicam 15 MG 1 tablet Orally Once a day; Duration: 90 days 07/18/2024 Active Spironolactone 50 MG 1 tablet Orally Onc e a day Active Immunizations Vaccine Route Administration Date Status Comme nts xFluzone (6mos and older)-trivalent IM Intramuscular 06/12/2012 Administered xFluzone (6mos and older)-trivalent IM Intramuscular 07/29/2013 Administered xFluzone (6mos and older)-trivalent IM Intramuscular 07/03/2014 Administered xFlu shot-36 months and older IM Intramuscular 07/15/2005 Administered xFlu shot-36 months and older IM Intramuscular 07/08/2006 Administered xFlu shot-36 months and older IM Intramuscular 07/03/2007 Administered xFlu shot-36 months and older IM Intramuscular 06/26/2008 Administered xFlu shot-36 months and older IM Intramuscular 07/30/2009 Administered xFlu shot-36 months and older IM Intramuscular 07/19/2011 Administered Tetanus Tdap-Adacel (over 7yrs) IM Intramuscular 11/11/2021 Administered Hepatitis A (adult) Unknown 06/25/2018 Administered Hepatitis A (adult) Unknown 01/10/2019 Administered Fluzone Quad (6months&older) IM Intramuscular 06/26/2017 Administered Fluzone Quad (6months&older) Unknown 06/26/2017 Administered Fluzone Quad (6months&older) Unknown 07/01/2019 Administered Fluzone PF Quad (6-35 months) Unknown 06/21/2018 Administered Fluzone PF Quad (6-35 months) Unknown 06/17/2020 Administered Fluzone PF Quad (6-35 months) Unknown 06/22/2021 Administered Fluzone PF Quad (6-35 months) Unknown 07/05/2022 Administered Fluzone PF Quad (6-35 months) Unknown 07/06/2023 Administered Fluzone Intradermal Quad private(18-64yrs) ID Intradermal 07/07/2015 Administered COVID 19 Moderna IM Intramuscular 09/16/2020 Administered COVID 19 Moderna Unknown 10/16/2020 Administered COVID 19 Moderna Unknown 01/13/2022 Administered Problems Problem Type SNOMED Code ICD Code Onset Dates Problem Status W/U Status Risk Notes Problem Vitamin D deficiency (10714421) Vitamin D deficiency (E55.9) Active confirmed Problem Essential hypertension (91885854) Essential hypertension (I10) Active confirmed Problem Family history of ischemic heart disease (158838648) Family history of premature coronary heart disease (V17.3) Active confirmed Problem Arthritis (8981200) Arthritis (M19.90) Active confirmed Problem Obese class I (903044406228204) BMI 33.0-33.9,adult (Z68.33) Active confirmed Problem Seasonal allergic rhinitis (596518138) Other seasonal allergic rhinitis (J30.2) Active confirmed Problem Polyarthritis (885298455) Polyarthritis (M13.0) Active confirmed Problem Allergic rhinitis (95398035) Allergic rhinitis, unspecified seasonality, unspecified trigger (J30.9) Active confirmed Vital Signs Heart Rate 73 /min 12/13/2024 Blood pressure diastolic 68 mm Hg 12/13/2024 Height 69 in 12/13/2024 Blood pressure systolic 120 mm Hg 12/13/2024 Weight 230.2 lbs 12/13/2024 BMI 33.99 kg/m2 12/13/2024 Encounters Encounter Location Date Provider Diagnosis [facility] [address] [id number] 07/18/2024 Paz Crowdy Polyarthritis M13.0 ; Acute URI J06.9 ; Essential hypertension I10 ; Other seasonal allergic rhinitis J30.2 ; Vitamin D deficiency E55.9 and Screening, lipid Z13.220 [facility] [address] [id number] 11/25/2024 Sherryrcoky Bolanos Influenza A J10.1 an d Cough R05.9 [facility] [address] [place] [id number] 12/02/2024 Sherry Bolanos Otitis externa H60.9 0 ; Pneumonia J18.9 and Sinusitis J32.9 [facility] [address] [facility] [address] [place] [id number] 12/06/2024 Paz Crowdy Pneumonia J18.9 ; Essential hypertension I10 and BMI 33.0-33.9,adult Z68.33 [facility] 121 [facility] [address] [place] [id number] 12/13/2024 Paz Crowdy Pneumonia J18.9 ; Impacted cerumen, right ear H61.21 and Acute otitis externa of right ear, unspecified type H60.501 [facility] [address] [place], [place] [id number] 07/21/2024 Paz Marrufo [facility] [address] [place], [place] [id number] 12/02/2024 Sherry Bolanos [facility] [address] [facility] [address] [place] [id number] 12/03/2024 Sherry Bolanos Assessments Encounter Date Diagnosis (ICD Code) Assessment Notes Treatment Notes Treatment Clinical Notes Section Notes 12/13/2024 Impacted cerumen, right ear (ICD-10 - H61.21) Ear irrigated. 12/13/2024 Pneumonia (ICD-10 - J18.9) continue with cough med 12/06/2024 Essential hypertension (ICD-10 - I10) 12/06/2024 Pneumonia (ICD-10 - J18.9) continue with cough med 12/02/2024 Otitis externa (ICD-10 - H60.90) keep ear dry 12/02/2024 Pneumonia (ICD-10 - J18.9) continue with cough med 11/25/2024 Influenza A (ICD-10 - J10.1) fluids, rest, supportive measures for fever/symptom relief, infectious precautions 11/25/2024 Cough (ICD-10 - R05.9) 07/18/2024 Acute URI (ICD-10 - J06.9) 07/18/2024 Polyarthritis (ICD-10 - M13.0) 07/18/2024 Essential hypertension (ICD-10 - I10) 12/02/2024 Sinusitis (ICD-10 - J32.9) 12/06/2024 BMI 33.0-33.9,adult (ICD-10 - Z68.33) 12/13/2024 Acute otitis externa of right ear, unspecified type (ICD-10 - H60.501) 07/18/2024 Other seasonal allergic rhinitis (ICD-10 - J30.2) 07/18/2024 Vitamin D deficiency (ICD-10 - E55.9) 07/18/2024 Screening, lipid (ICD-10 - Z13.220) Plan Of Treatment Pending Test Test Name Order Date H-TSH 11/11/2021 H-CBC 11/11/2021 H-Lipid Panel 11/11/2021 H-CMP 11/11/2021 Insurance Providers Payer Name Payer Address Payer Phone Subscriber Number Group Number Insured Name Patient Relationship to Insured Coverage Start Date Coverage End Date PASHA [facility] [address] [place] [address] [id number] BARRY GOLDEN Self - patient is the insured Medical (General) History Medical History History ICD Code Hypertension ONCOLOGY RN - Dr. Hernandez allergic rhinitis Vitamin D deficiency Surgical History Surgery Date(Month/Year) Heart Cath November 2017 Hospitalization History Reason Date(Month/Year) ER visit, stabbing side pains 05/03/07
[2025-03-17 17:27] LABS: Chloride 96 mmol/L (98-107); Sodium 134 mmol/L (136-145)
[2025-03-17 17:28] LABS: Potassium 4.6 mmoL/L (3.5-5.1)
[2025-03-17 17:30] LABS: Anion Gap 9.6 mEq/L (5-15); Blood Urea Nitrogen 17 mg/dl (7-17); Carbon Dioxide 33 mmol/L (22.0-30.0); Creatinine,Serum 1.00 mg/dl (0.52-1.04); Estimated Glomerular Filt Rate 56 ml/min (>60); GFR (African American) 68 ML/MIN (>60)
[2025-03-17 17:31] LABS: Calcium 10.2 mg/dl (8.4-10.2); Glucose 96 mg/dl (74-100); Magnesium 1.5 mg/dl (1.6-2.3)
== END 2025-03-17 23:59 | disposition home or self-care (01) ==
LOC: LAB 16:19
PROVIDERS: PCP Family Medicine; Visit Provider Internal Medicine
DX: I10 Essential (primary) hypertension (principal); R53.83 Other fatigue
CPT/HCPCS: 36415; 80048; 83735